=== PATIENT | male | born 1965 | race American Indian/Alaskan Native ===

== ENCOUNTER 2024-03-30 09:42 | Outpatient (AMB) | payer OTHER, SELFPAY ==
--- NOTE | 2024-03-30 10:08 | A.OFFPC_ITS ---
Vital Signs 03/30/24 10:11 Height 5 ft 2.8 in Weight 189 lb 8 oz BMI 33.8 BP 132/88 Blood Pressure Location Lt brachial Respiration 16 Pulse 79 Pulse Source Pulse Oximeter Temp 98.2 F Temp Source Oral Pulse Oximetry (%) 95 Oxygen Delivery Method Room Air Intake Visit Reasons: tania from [facility] Intake Note: New patient visit. Would like new script for Viagra 100 mg Allergies No Known Allergies Allergy (Verified 03/30/24 10:09) Medication List - Last Reconciled 03/30/24 by Emily Robles PA-C atorvastatin 10 mg PO DAILY ciclopirox 8% topical hydrochlorothiazide 25 mg PO DAILY sildenafil mg PO Tobacco use date assessed: 03/30/24 Dental Screening Dental Screen Date: 03/30/24 Did you have a dental visit in the last 12 months?: Yes Did you have a dental problem in the last 6 months where you did not have access to dental care?: No Was dental information given to patient?: Patient has dentist HPI tania from [facility] HPI Details Patient is a 58-year-old male who [facility]. He is transferring from [facility]. He was last seen by myself on 08/18/2023. He has a significant past medical history of hypertension, hyperlipidemia, ifg, ckd and erectile dysfunction. CV: Blood pressure today is 132/88. He is on hydrochlorothiazide 25 mg. States that he is compliant with this. He is on Lipitor 10 mg for his cholesterol. Overdue for labs. He never heard about a stress test for the chest discomfort. He gets it once a month and usually triggered by stress. Lasts for about 10 minutes and he will get a little dizzy with it. He states sometimes if he does do a lot of activity he gets dizzy. No sob. Musculoskeletal: following with [facility] for the right knee. He just got dx with sleep apnea and just started on CPAP. He never heard about a stress test for the chest discomfort. He gets it once a month and usually triggered by stress. Lasts for about 10 minutes and he will get a little dizzy with it. He states sometimes if he does do a lot of activity he gets dizzy. No sob. Colonoscopy: 05/05/2018- thinks overdue. Has a fam hx of colon ca, sister (age 55) and first cousin. other siblings with precancerous changes. Psa: wnl 08/2023 [facility] Medical History (Updated 03/30/24 @ 13:06 by Emily Robles PA-C) Tubular adenoma of colon Obesity, Class I, BMI 30-34.9 HTN (hypertension) Hyperglycemia Erectile dysfunction CKD (chronic kidney disease) Family History (Updated 03/30/24 @ 10:20 by Alba Heard CMA) Mother Cancer of lung Pulmonary fibrosis Father Cancer of prostate Diabetes HTN (hypertension) Social History Housing: House Patient Tobacco Use Status: Former Tobacco user Cigarettes Per Day: 2 Years Smoked: 5 e-Cigarette/Vaping Use: Never Used Second Hand Smoke Exposure: No service: No Current occupational status: employed 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 1. Little interest or pleasure in doing things: not at all 2. Feeling down, depressed, or hopeless: not at all 3. Trouble falling or staying asleep, or sleeping too much: not at all 4. Feeling tired or having little energy: not at all 5. Poor appetite or overeating: not at all 6. Feeling bad about yourself - or that you are a failure or have let yourself or your family down: not at all 7. Trouble concentrating on things, such as reading the newspaper or watching television: not at all 8. Moving or speaking so slowly that other people could have noticed. Or the opposite - being so fidgety or restless that you have been moving around a lot more than usual: not at all 9. Thoughts that you would be better off or of hurting yourself in some way: not at all Total score: 0 Depression Screening Interpretation: Negative Depression Screening Done: Yes [id number] - PHQ-9 Billing: Yes Source: Developed by Drs. Babar Marcial, Temi Marlow, Edwin Herron and colleagues, with an educational judy from [employer]. Thrive Questionnaire Date Thrive assessed: 03/30/24 I am a: Patient What is your living situation today?: I have a steady place to live Within the past 12 months, did the food you bought not last and you didn't have the money to get more?: Never true Within the past 12 months, did you worry whether your food would run out before you got money to buy more?: Never true Do you have trouble paying for medicines?: No Do you have trouble getting transportation to medical appointments?: No Do you have trouble paying your heating and electricity bill?: No Do you have trouble taking care of your child, family member or friend?: No Do you have trouble with day-to-day activities such as bathing, preparing meals, shopping, managing finances, etc.?: No Are you currently unemployed and looking for a job?: No Are you interested in more education?: No Please select the resources that you would like help with: None Currently or been in a relationship where the following occur: No concerns reported THRIVE Score: 0 AUDIT C Alcohol Use Questionnaire (AUDIT-C) 1. How often do you have a drink containing alcohol?: 2-3 times a week 2. How many drinks containing alcohol do you have on a typical day when you are drinking?: 5 or 6 3. How often do you have six or more drinks on one occasion?: Never Total Score: 5 CARMINA-7 AMB Questionnaire CARMINA-7 Date CARMINA - 7 assessed: 03/30/24 Feeling nervous, anxious, or on edge: 0 = Not at all Not being able to stop or control worryin = Not at all Worrying too much about different things: 0 = Not at all Trouble relaxin = Not at all Being so restless that it is hard to sit still: 0 = Not at all Becoming easily annoyed or irritable: 0 = Not at all Feeling afraid as if something awful might happen: 0 = Not at all Total CARMINA-7 score (0-4 normal; 5-9 mild; 10-14 moderate; 15-21 severe): 0 Source: Developed by Drs. Babar Marcial, Temi Marlow, Edwin Herron and colleagues, with an educational judy from [employer]. CARMINA-7 Assessment Billing CARMINA-7 Assessment Tool: CARMINA-7 Assessment 39083 Physical exam (Primary Care) Vital Signs: Last Vital Signs Temp 98.2 F 03/30/24 10:11 Pulse 79 03/30/24 10:11 Resp 16 03/30/24 10:11 BP 132/88 03/30/24 10:11 Pulse Ox 95 03/30/24 10:11 Oxygen Delivery Method Room Air 03/30/24 10:11 BMI result Body Mass Index 33.8 Tobacco/Smoking Status: Tobacco use Status Tobacco use date assessed 03/30/24 03/30/24 10:21 Patient Tobacco Use Status Former Tobacco user 03/30/24 10:21 e-Cigarette/Vaping Use Never Used 03/30/24 10:21 PHQ-9: PHQ-9 Score PHQ-9: Total score 0 03/30/24 10:26 Depression Screening Interpretation: Negative Thrive Assessment: Date of Thrive Assessment Date Thrive assessed 03/30/24 03/30/24 10:21 Currently or been in a relationship where the following occur: No concerns reported Const Orientation/consciousness: patient oriented x3 HENMT Ears: hearing grossly normal bilaterally Neck Thyroid: Thyroid normal Lymphatic: no lymphadenopathy noted Resp Auscultation: clear to auscultation bilaterally Cardio Rate: regular rate Rhythm: regular rhythm Heart sounds: S1 normal heart sound present and S2 normal heart sound present GI Inspection: Yes normal to inspection Palpation (GI): Soft to palpation and Other GI palpation findings present (nontender, no cva tenderness) Auscultation: normoactive bowel sounds Rectal Exam - Male: Yes deferred Skin General skin exam: no rashes or lesions noted Neuro General: patient oriented x3, gait normal and no focal motor deficits Assessment and Plan Assessment & Plan (1) Hyperlipidemia: Code(s): E78.5 - Hyperlipidemia, unspecified Qualifiers: Hyperlipidemia type: mixed hyperlipidemia Qualified Code(s): E78.2 - Mixed hyperlipidemia Plan: Lipids and LFTs ordered. Continue Lipitor. (2) HTN (hypertension): Code(s): I10 - Essential (primary) hypertension Qualifiers: Hypertension type: primary hypertension Qualified Code(s): I10 - Essential (primary) hypertension Plan: Continue hydrochlorothiazide. (3) CKD (chronic kidney disease): Code(s): N18.9 - Chronic kidney disease, unspecified Qualifiers: Chronic kidney disease stage: unspecified stage Qualified Code(s): N1 8.9 - Chronic kidney disease, unspecified Plan: We will recheck. Had 1 episode of a decreased GFR and then it normalized. (4) Hyperglycemia: Code(s): R73.9 - Hyperglycemia, unspecified Plan: A1c ordered (5) Obesity, Class I, BMI 30-34.9: Code(s): E66.9 - Obesity, unspecified Plan: Advised patient to reduce carbohydrate and sugar intake. (6) Erectile dysfunction: Code(s): N52.9 - Male erectile dysfunction, unspecified Plan: Refill Viagra today (7) Chest discomfort: Code(s): R07.89 - Other chest pain Plan: Warning signs of chest pain that would require emergent medical treatment were discussed. Patient reports having a chest x-ray done at [facility] for this but not all of the records are here yet. EKG today in office is normal sinus rhythm. Stress test ordered. We will follow up with patient pending test results. Patient understands and agrees with the plan. (8) Family history of colon cancer: Code(s): Z80.0 - Family history of malignant neoplasm of digestive organs Plan: Referral to GI Orders: Orders Complete Blood Count Auto Diff Today E66.9 - Obesity, unspecified, E78.5 - Hyperlipidemia, unspecified, I10 - Essential (primary) hypertension, N18.9 - Chronic kidney disease, unspecified, N52.9 - Male erectile dysfunction, unspecified, R73.9 - Hyperglycemia, unspecified TSH reflex Free T4 Today E66.9 - Obesity, unspecified, E78.5 - Hyperlipidemia, unspecified, I10 - Essential (primary) hypertension, N18.9 - Chronic kidney disease, unspecified, N52.9 - Male erectile dysfunction, unspecified, R73.9 - Hyperglycemia, unspecified AMB EKG-In Office Today R07.89 - Other chest pain CA stress test Today R07.89 - Other chest pain Comprehensive [place]. Panel Fast Today E66.9 - Obesity, unspecified, E78.5 - Hyperlipidemia, unspecified, I10 - Essential (primary) hypertension, N18.9 - Chronic kidney disease, unspecified, N52.9 - Male erectile dysfunction, unspecified, R73.9 - Hyperglycemia, unspecified Lipid Panel Today E66.9 - Obesity, unspecified, E78.5 - Hyperlipidemia, unspecified, I10 - Essential (primary) hypertension, N18.9 - Chronic kidney disease, unspecified, N52.9 - Male erectile dysfunction, unspecified, R73.9 - Hyperglycemia, unspecified Referrals Gastroenterology Referral Z12.11 - Encounter for screening for malignant neoplasm of colon, Z80.0 - Family history of malignant neoplasm of digestive organs Medications: New atorvastatin 10 mg PO DAILY 90 tabs 3RF hydrochlorothiazide 25 mg PO DAILY 90 tabs 3RF sildenafil (Viagra) take pill 30-60 min prior to sexual activity 100 mg PO DAILY PRN 30 tabs 1RF sexual activity Coding Level of Care Code Est Pt Level 4 (58005) Complex EM visit Add On G2211 Diagnoses Mixed hyperlipidemia E78.2 Hyperlipidemia type: mixed hyperlipidemia Primary hypertension I10 Hypertension type: primary hypertension Chronic kidney disease, unspecified CKD stage N18.9 Chronic kidney disease stage: unspecified stage Hyperglycemia R73.9 Obesity, Class I, BMI 30-34.9 E66.9 Erectile dysfunction N52.9 Chest discomfort R07.89 Family history of colon cancer Z80.0 Additional Codes CARMINA-7 Assessment Billing - CARMINA-7 Assessment Tool: CARMINA-7 Assessment [id number] ([id number])
[2024-03-30 10:11] VITALS: BP 132/88; PULSE 79; RESP 16; TEMP 36.8; O2SAT 95; BMI 33.8
== END 2024-03-30 11:14 | disposition home or self-care (01) ==
PROVIDERS: PCP Internal Medicine; Visit Provider Physician Assistant
DX: E78.2 Mixed hyperlipidemia (principal); I12.9 Hypertensive chronic kidney disease with stage 1 through stage 4 chronic kidney disease, or unspecified chronic kidney disease; N18.9 Chronic kidney disease, unspecified; R07.89 Other chest pain; R73.9 Hyperglycemia, unspecified; E66.9 Obesity, unspecified; N52.9 Male erectile dysfunction, unspecified; Z80.0 Family history of malignant neoplasm of digestive organs
CPT/HCPCS: 93000; 99214

== ENCOUNTER 2024-03-30 11:17 | Outpatient (REF) | payer OTHER, SELFPAY ==
[2024-03-30 14:14] LABS: MANUAL DIFF FLAG NO
[2024-03-30 14:34] LABS: Basophils Percent Auto 0.5 % (0-2); Eosinophils Absolute Auto 0.1 X10*3/uL (0.0-0.4); Eosinophils Percent Auto 0.9 % (0-4); Hematocrit 43.2 % (42.0-52.0); Hemoglobin 14.7 g/dl (14.0-18.0); Imm Gran Abs Auto 0.02 X10*3/uL (0.00-0.03); Imm Gran Pct Auto 0.3 % (0.0-0.4); Lymphocytes Absolute Auto 2.8 X10*3/uL (1.2-4.9); Lymphocytes Percent Auto 37.4 % (20-40); Mean Corpuscular Volume 91.1 fL (80.0-98.0); Mean Platelet Volume 11.4 fL (9.4-12.4); Monocytes Absolute Auto 0.6 X10*3/uL (0.1-1.2); Monocytes Percent Auto 8.3 % (2-11); Neutrophils Absolute Auto 3.9 x10*3/uL (2.0-8.3); Neutrophils Percent Auto 52.6 % (45-73); Platelet Count 232 X10*3/uL (160-400); Red Blood Count 4.74 X10*6/uL (4.60-5.80); Red Cell Distribution Width 11.7 % (11.0-16.0); White Blood Count 7.4 X10*3/uL (4.8-10.8)
[2024-03-30 14:50] LABS: Alanine Aminotransferase 19 U/L (0-40); Albumin Level 4.6 g/dL (3.5-5.0); Alkaline Phosphatase 77 U/L (39-117); Anion Gap 13 (12-20); Aspartate Amino Transferase 19 U/L (5-37); Blood Urea Nitrogen 18 mg/dL (9-16); Calcium 9.7 mg/dL (8.4-10.2); Carbon Dioxide 28 mmol/L (22-29); Chloride 102 mmol/L (96-108); Cholesterol 169 mg/dL (<200); Estimated Glomerular Filt Rate 52; Glucose Fasting 97 mg/dL (60-99); HDL Cholesterol 60 mg/dL (>40); LDL Cholesterol Calculated 95 mg/dL (<100); Potassium 3.5 mmol/L (3.3-5.1); Sodium 139 mmol/L (135-145); Total Protein 7.6 g/dL (6.5-8.0); Triglycerides 73 mg/dL (<150)
[2024-03-30 15:09] LABS: TSH reflex Free T4 1.35 uIU/mL (0.32-4.0)
== END 2024-03-30 11:18 | disposition home or self-care (01) ==
LOC: HO.WFDLDS 11:17
PROVIDERS: Visit Provider Physician Assistant
DX: N18.9 Chronic kidney disease, unspecified (principal); N52.9 Male erectile dysfunction, unspecified; R73.9 Hyperglycemia, unspecified; E66.9 Obesity, unspecified; E78.5 Hyperlipidemia, unspecified; I10 Essential (primary) hypertension
CPT/HCPCS: 36415; 80053; 80061; 84443; 85025

== ENCOUNTER → 2024-04-24 07:30 | Outpatient (REF) | payer BC, SELFPAY ==
--- NOTE | 2024-04-24 07:33 | CA_ITS ---
Acquisition Time: 2024-04-24 07:57:26 Total Exercise Time: 00:06:30 Test Indications: CP Medications: ATORVASTATIN HCTZ SILDENAFIL Protocol: SIMON Max HR: 171 BPM 106% of Pred: 161 BPM Max BP: 180/070 mmHG Max Work Load: 7.6 METS Exercise stress test exercise 6 m,in 30 sec of Simon protocol achieving 104% MPHR, with mild SOB, 8/10 chest tightness, with isolated PACs, with normotensive response to exercise, without EKG changes. Chesdt tightness resolved with rest. Test reviewed with Dr. Nix. Cait stress echo and echocardiogram for further assessment Referred By: Emily Robles Overread By: Chasidy Branham
== END ==
LOC: HO.CARD 07:30
PROVIDERS: PCP Internal Medicine; Visit Provider Physician Assistant
DX: R07.89 Other chest pain (principal)
CPT/HCPCS: 93017

== ENCOUNTER → 2024-04-24 07:33 | Outpatient (BNV) | payer BC, SELFPAY | PROVIDERS: PCP Internal Medicine; Visit Provider Nurse Practitioner | DX: I49.1 Atrial premature depolarization (principal); R06.02 Shortness of breath | CPT/HCPCS: 93016; 93018 ==

== ENCOUNTER 2024-05-03 14:17 | Outpatient (AMB) | payer BC, SELFPAY ==
[2024-05-03 14:17] VITALS: BP 128/84; PULSE 77; O2SAT 97; BMI 33.2
--- NOTE | 2024-05-03 14:17 | HO.NEPHOV ---
Vital Signs 05/03/24 14:17 Height 5 ft 2.8 in Weight 186 lb BMI 33.2 BP 128/84 Blood Pressure Location Rt brachial Position Sitting Pulse 77 Pulse Source Pulse Oximeter Pulse Oximetry (%) 97 Oxygen Delivery Method Room Air Intake Visit Reasons: CKD/ Conf [place] Required: No Accompanied by: Self / Same As Patient Allergies No Known Allergies Allergy (Verified 05/03/24 14:21) Medication List - Last Reconciled 05/03/24 by Nitish Joshi MD atorvastatin 10 mg PO DAILY ciclopirox 8% topical hydrochlorothiazide 25 mg PO DAILY sildenafil (Viagra) 100 mg PO DAILY PRN HPI Comments Details: . Tripp is a pleasant 58 year-old man with a history of hypertension for quite some time. He has been on hydrochlorothiazide 25 mg a day. There has been a mild increase in serum creatinine. About a year ago so ago creatinine was 1.6. Recent creatinine was 1.4. There has been some fluctuation in the creatinine and he has been sent for further renal evaluation. He is undergoing cardiac evaluation including an echocardiogram due to abnormal stress test. He has no specific complaints at this time. No history of smoking or alcohol abuse. 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 There is no family history of any kidney disease. He has no specific complaints like headache nausea or vomiting. No shortness of breath. No edema. No urinary symptoms no hematuria. [facility] Medical History (Updated 03/30/24 @ 13:06 by Emily Robles PA-C) Tubular adenoma of colon Obesity, Class I, BMI 30-34.9 HTN (hypertension) Hyperglycemia Erectile dysfunction CKD (chronic kidney disease) Family History Mother Cancer of lung Pulmonary fibrosis Father Cancer of prostate Diabetes HTN (hypertension) Social History Housing: House Patient Tobacco Use Status: Former Tobacco user Cigarettes Per Day: 2 Years Smoked: 5 e-Cigarette/Vaping Use: Never Used Second Hand Smoke Exposure: No service: No Current occupational status: employed 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 Current occupational exposures/hazards: No Cognitive needs: No Hearing needs: No Vision needs: No Review of Systems Const Denies fever(s) and Denies weight loss Card Denies chest pain Resp Denies cough and Denies hemoptysis GI Denies abdominal pain, Denies diarrhea and Denies nausea Musc Denies back pain Neuro Denies focal weakness Physical Exam Vital Signs: Last Vital Signs Pulse 77 05/03/24 14:17 BP 128/84 05/03/24 14:17 Pulse Ox 97 05/03/24 14:17 Oxygen Delivery Method Room Air 05/03/24 14:17 BMI result Body Mass Index 33.2 Const General: comfortable; No acute distress Orientation/consciousness: patient oriented x3 Eyes General: appearance normal, both eyes and all related structures Visual Yates: normal visual yates by confrontation Neck Neck: Yes supple and Yes no JVD Resp Effort & Inspection: normal respiratory effort and respiratory effort not decreased Auscultation: rhonchi Cardio Palpation: no palpable S3 and no palpable S4 Heart sounds: no rubs GI Inspection: Yes normal to inspection Palpation (GI): Soft to palpation Percussion: Yes normal to percussion Auscultation: normal bowel sounds General: Yes no CVA tenderness Back/Spine/Pelvis Back: no CVA tenderness Skin General skin exam: no petechiae and no purpura Neuro General: patient oriented x3 and no focal motor deficits Extrem General: No clubbing and No edema Results Reviewed Nephrology Results: Hgb 14.7 g/dl (14.0-18.0) 03/30/24 WBC 7.4 X10*3/uL (4.8-10.8) 03/30/24 Plt Count 232 X10*3/uL (160-400) 03/30/24 Sodium 139 mmol/L (135-145) 03/30/24 Potassium 3.5 mmol/L (3.3-5.1) 03/30/24 Chloride 102 mmol/L (96-108) 03/30/24 Carbon Dioxide 28 mmol/L (22-29) 03/30/24 BUN 18 mg/dL (9-16) H 03/30/24 Creatinine 1.39 mg/dL (0.5-1.4) 03/30/24 Calcium 9.7 mg/dL (8.4-10.2) 03/30/24 Assessment & Plan Assessment & Plan (1) CKD (chronic kidney disease): Code(s): N18.9 - Chronic kidney disease, unspecified Category: Medical Qualifiers: Chronic kidney disease stage: unspecified stage Qualified Code(s): N18.9 - Chronic kidney disease, unspecified (2) HTN (hypertension): Code(s): I10 - Essential (primary) hypertension Category: Medical Qualifiers: Hypertension type: primary hypertension Qualified Code(s): I10 - Essential (primary) hypertension Brittani Almaguer is a 58-year-old man with a history of elevated serum creatinine setting of hypertension. He has been hydrochlorothiazide 25 mg a day. The serum creatinine has fluctuated and it has been between 1.4-1.6 mg/dL. No urine studies are available at this time. He has increased muscle mass and this may be his baseline. However use of hydrochlorothiazide could lead to hypoperfusion causing decrease in EGFR. I have initiated workup for elevated serum creatinine. Recommendation twenty-four urine collection for creatinine clearance. Renal ultrasonogram. Routine urinalysis along with urine protein creatinine ratio. Encouraged him to stand low-sodium diet Increase p.o. fluid intake. Further workup will be based on the outcome of the above investigations. I would consider switching HCTZ to a different agent based on the repeat renal function test. Keep you updated Orders: Orders Basic Metabolic Panel Today I10 - Essential (primary) hypertension, N18.9 - Chronic kidney disease, unspecified UA and rflx microscopic Today I10 - Essential (primary) hypertension, N18.9 - Chronic kidney disease, unspecified Creatinine Urine Today I10 - Essential (primary) hypertension, N18.9 - Chronic kidney disease, unspecified Creatinine Clearance Urine 24U Today I10 - Essential (primary) hypertension, N18.9 - Chronic kidney disease, unspecified Total Protein Urine Random Today I10 - Essential (primary) hypertension, N18.9 - Chronic kidney disease, unspecified Creatinine, 24 Hr Group Today I10 - Essential (primary) hypertension, N18.9 - Chronic kidney disease, unspecified US renal BI Today I10 - Essential (primary) hypertension, N18.9 - Chronic kidney disease, unspecified CK, Total+Isoenzymes, Serum Today I10 - Essential (primary) hypertension, N18.9 - Chronic kidney disease, unspecified Coding Level of Care Code New Pt Level 4 (26037) Diagnoses Chronic kidney disease, unspecified CKD stage N18.9 Chronic kidney disease stage: unspecified stage Primary hypertension I10 Hypertension type: primary hypertension
== END 2024-05-03 14:40 | disposition home or self-care (01) ==
LOC: HO.HKAE 14:17
PROVIDERS: PCP Internal Medicine; Visit Provider Internal Medicine Hypertension Specialist
DX: I12.9 Hypertensive chronic kidney disease with stage 1 through stage 4 chronic kidney disease, or unspecified chronic kidney disease (principal); N18.9 Chronic kidney disease, unspecified
CPT/HCPCS: 99204

== ENCOUNTER → 2024-05-03 14:17 | Outpatient (BNVA) | payer BC, SELFPAY | PROVIDERS: PCP Internal Medicine; Visit Provider Internal Medicine Hypertension Specialist ==

== ENCOUNTER 2024-05-22 12:46 | Outpatient (REF) | payer BC, SELFPAY ==
[2024-05-22 13:54] LABS: Anion Gap 12 (12-20); Blood Urea Nitrogen 17 mg/dL (9-16); Calcium 9.7 mg/dL (8.4-10.2); Carbon Dioxide 27 mmol/L (22-29); Chloride 103 mmol/L (96-108); Estimated Glomerular Filt Rate 53; Glucose Random 117 mg/dL (60-115); Potassium 3.3 mmol/L (3.3-5.1); Sodium 139 mmol/L (135-145)
[2024-05-22 14:25] LABS: Appearance Urine Clear; Color Urine Yellow; Glucose Urine UA Negative (Negative); Leukocyte Esterase Urine Negative (Negative); Nitrite Urine Negative (Negative); Urine Blood Negative (Negative); Urine Ketones Negative (Negative); Urine Protein Negative (Neg-Trace)
[2024-05-22 14:46] LABS: Creatinine Urine 125.28 mg/dL; Total Protein Urine Random < 7 mg/dL (<12)
[2024-05-22 20:55] LABS: Total Volume 24 Hour Urine 1975 mL
[2024-05-22 20:56] LABS: Creatinine (CrCl) 1.37 mg/dL (0.5-1.4)
[2024-05-22 21:05] LABS: Creatinine Clearance 90.9 mL/min (85-125); Creatinine, 24Hr Urine 1.8 G/Day (1.0-2.0); Creatinine, mg/dL 90.84
[2024-05-25 21:58] LABS: CK-BB None Detected (None Detected); CK-MB 0 % (<5); CK-MM 92 % (95-100); Creatine Kinase,Total,Serum 103 U/L (44-196)
== END 2024-05-22 12:47 | disposition home or self-care (01) ==
LOC: HO.WFDLDS 12:46
PROVIDERS: Visit Provider Internal Medicine Hypertension Specialist
DX: I12.9 Hypertensive chronic kidney disease with stage 1 through stage 4 chronic kidney disease, or unspecified chronic kidney disease (principal); N18.9 Chronic kidney disease, unspecified
CPT/HCPCS: 36415; 80048; 81003; 82552; 82570; 82575; 84156

== ENCOUNTER 2024-05-26 15:04 | Outpatient (REF) | payer BC, SELFPAY ==
--- NOTE | ~2024-05-26 | US_ITS ---
EXAMINATION: US RETROPERITONEAL LIMITED (RENAL ONLY) CLINICAL INFORMATION: Chronic kidney disease. COMPARISON: None available. TECHNIQUE: Grayscale and Doppler imaging of the kidneys was obtained. FINDINGS: RIGHT KIDNEY: 10.4 x 4.6 x 3.9 cm (SAG x AP x TRV). The kidney is normal in size, contour, and echogenicity. Renal cortical thickness is normal. Small echogenic focus within the midpole which is favored to represent a vascular calcification. No additional calculi or focal parenchymal lesions. No hydronephrosis. LEFT KIDNEY: 10 x 5.6 x 3.8 cm (SAG x AP x TRV). The kidney is normal in size, contour, and echogenicity. Renal cortical thickness is normal. No calculi or focal parenchymal lesions. No hydronephrosis. Partially visualized increased hepatic parenchymal echogenicity. US/US renal BI IMPRESSION: 1. No hydronephrosis or nephrolithiasis. 2. Partially visualized increased hepatic parenchymal echogenicity, which can be seen in the setting of fatty infiltration. Electronically signed by: Hermilo Valero MD 06/24/2024 10:31 AM [facility]
== END 2024-05-26 15:05 | disposition home or self-care (01) ==
LOC: HO.US 15:04
PROVIDERS: PCP Internal Medicine; Visit Provider Internal Medicine Hypertension Specialist
DX: I12.9 Hypertensive chronic kidney disease with stage 1 through stage 4 chronic kidney disease, or unspecified chronic kidney disease (principal); N18.9 Chronic kidney disease, unspecified
CPT/HCPCS: 76775

== ENCOUNTER 2024-06-21 15:55 | Outpatient (AMB) | payer BC, SELFPAY ==
[2024-06-21 16:09] VITALS: BP 124/72; PULSE 80; O2SAT 97; BMI 33.9
--- NOTE | 2024-06-21 16:09 | HO.NEPHOV ---
Vital Signs 06/21/24 16:09 Height 5 ft 2.8 in Weight 190 lb BMI 33.9 BP 124/72 Blood Pressure Location Lt brachial Position Sitting Pulse 80 Pulse Source Pulse Oximeter Pulse Oximetry (%) 97 Oxygen Delivery Method Room Air Intake Visit Reasons: CKD/ LVM Tin Assorter Required: No Accompanied by: Self / Same As Patient Allergies No Known Allergies Allergy (Verified 06/21/24 16:12) Medication List - Last Reconciled 06/21/24 by Nitish Joshi MD atorvastatin 10 mg PO DAILY ciclopirox 8% topical hydrochlorothiazide 25 mg PO DAILY sildenafil (Viagra) 100 mg PO DAILY PRN HPI Comments Details: Navya Almaguer is a pleasant 58 year-old man with a history of hypertension for quite some time. He has been on hydrochlorothiazide 25 mg a day. There has been a mild increase in serum creatinine. About a year ago so ago creatinine was 1.6. Recent creatinine was 1.4. There has been some fluctuation in the creatinine and he has been sent for further renal evaluation. He is undergoing cardiac evaluation including an echocardiogram due to abnormal stress test. He has no specific complaints at this time. No history of smoking or alcohol abuse. 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 There is no family history of any kidney disease. He has no specific complaints like headache nausea or vomiting. No shortness of breath. No edema. No urinary symptoms no hematuria. 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 Current occupational exposures/hazards: No Cognitive needs: No Hearing needs: No Vision needs: No Physical Exam Vital Signs: Last Vital Signs Pulse 80 06/21/24 16:09 BP 124/72 06/21/24 16:09 Pulse Ox 97 06/21/24 16:09 Oxygen Delivery Method Room Air 06/21/24 16:09 BMI result Body Mass Index 33.9 Const General: comfortable; No acute distress Orientation/consciousness: patient oriented x3 Eyes General: appearance normal, both eyes and all related structures Visual Yates: normal visual yates by confrontation Neck Neck: Yes supple and Yes no JVD Resp Effort & Inspection: normal respiratory effort and respiratory effort not decreased Auscultation: rhonchi Cardio Palpation: no palpable S3 and no palpable S4 Heart sounds: no rubs GI Inspection: Yes normal to inspection Palpation (GI): Soft to palpation Percussion: Yes normal to percussion Auscultation: normal bowel sounds General: Yes no CVA tenderness Back/Spine/Pelvis Back: no CVA tenderness Skin General skin exam: no petechiae and no purpura Neuro General: patient oriented x3 and no focal motor deficits Extrem General: No clubbing and No edema Results Reviewed Nephrology Results: Hgb 14.7 g/dl (14.0-18.0) 03/30/24 WBC 7.4 X10*3/uL (4.8-10.8) 03/30/24 Plt Count 232 X10*3/uL (160-400) 03/30/24 Sodium 139 mmol/L (135-145) 05/22/24 Potassium 3.3 mmol/L (3.3-5.1) 05/22/24 Chloride 103 mmol/L (96-108) 05/22/24 Carbon Dioxide 27 mmol/L (22-29) 05/22/24 BUN 17 mg/dL (9-16) H 05/22/24 Creatinine 1.37 mg/dL (0.5-1.4) 05/22/24 Calcium 9.7 mg/dL (8.4-10.2) 05/22/24 Urine Protein Negative mg/dL (Neg-Trace) 05/22/24 Urine Creatinine 125.28 mg/dL 05/22/24 Renal US 05/26/24 Assessment & Plan Assessment & Plan (1) CKD (chronic kidney disease): Code(s): N18.9 - Chronic kidney disease, unspecified Category: Medical Qualifiers: Chronic kidney disease stage: unspecified stage Qualified Code(s): N18.9 - Chronic kidney disease, unspecified (2) HTN (hypertension): Code(s): I10 - Essential (primary) hypertension Category: Medical Qualifiers: Hypertension type: primary hypertension Qualified Code(s): I10 - Essential (primary) hypertension Plan Tripp is a 58-year-old man with a history of elevated serum creatinine setting of hypertension. He has been hydrochlorothiazide 25 mg a day. The serum creatinine has fluctuated and it has been between 1.4-1.6 mg/dL. He has increased muscle mass and this may be his baseline. However use of hydrochlorothiazide could lead to hypoperfusion causing decrease in EGFR. Twenty-four urine collection showed a creatinine clearance of 90 mL/minute. No significant proteinuria. Renal ultrasonogram appears normal. If she will report is pending. Encouraged him to stand low-sodium diet Increase p.o. fluid intake. Given the marginally elevated serum creatinine I will discontinue hydrochlorothiazide and switch him to amlodipine 2.5 mg a day. Encouraged him to keep monitoring blood pressure at home. We can titrate amlodipine based on home blood pressure readings. Medications: New amlodipine 2.5 mg PO DAILY 90 tabs 0RF Discontinued hydrochlorothiazide Discontinued Reason: Doctor's Order 25 mg PO DAILY 90 tabs 3RF Coding Level of Care Code Est Pt Level 4 (37927) Diagnoses Chronic kidney disease, unspecified CKD stage N18.9 Chronic kidney disease stage: unspecified stage Primary hypertension I10 Hypertension type: primary hypertension
== END 2024-06-22 11:06 | disposition home or self-care (01) ==
PROVIDERS: PCP Internal Medicine; Visit Provider Internal Medicine Hypertension Specialist
DX: I12.9 Hypertensive chronic kidney disease with stage 1 through stage 4 chronic kidney disease, or unspecified chronic kidney disease (principal); N18.9 Chronic kidney disease, unspecified
CPT/HCPCS: 99214

== ENCOUNTER → 2024-06-29 09:54 | Outpatient (REF) | payer BC, SELFPAY ==
--- NOTE | 2024-06-29 10:09 | CA_ITS ---
Transthoracic Echocardiogram Patient (Last, First, Middle): Tripp Toussaint, Gender: Male Date of : 1965 Age: 58 Procedure Date: 06/29/2024 Procedure Type: Transthoracic Echocardiogram Location: OP Height: 160.02 cm Weight: 81.65 kg BSA: 1.85 m2 Heart Rate: bpm BP: 116 / 74 mmHg Cloth Sponger: STEVE Referring MD: Emily Robles PA-C Honey Grader And Blender: Wilfrido Nix MD Symptoms: R07.89 - Other chest pain Study Quality: Adequate ECG Rhythm: Sinus Conclusions: - 1. Normal LV ejection fraction of 60 65% with grade 1 diastolic dysfunction 2. Mild mitral annular calcification and calcific changes in his ascending aorta with normal cardiac valvular Doppler 3. No gross pericardial effusion Findings Left Ventricle Normal left ventricular size, thickness, and systolic function. The visually estimated ejection fraction is between 60-65%. Spectral Doppler is indicative of an impaired relaxation filling pattern. E/E prime ratio is <8, consistent with normal filling pressures. Evidence suggests grade I (mild) diastolic dysfunction. Right Ventricle Normal right ventricular cavity size and systolic function. Atria Both atria are normal in size. There is no evidence of interatrial shunt. Aortic Valve The aortic valve structure and function is likely normal. There is no aortic valve stenosis. There is no aortic valve regurgitation. Mitral Valve Normal mitral valve structure and function. There is mild mitral annular calcification. There is trace mitral valve regurgitation. There is no mitral valve stenosis. Pulmonic Valve The pulmonic valve is likely normal. Tricuspid Valve Likely normal tricuspid valve structure and function. Tricuspid regurgitation envelope is inadequate for calculation of right ventricular systolic pressure. Normal right atrial pressure. There is no evidence of pulmonary hypertension. Great Vessels All visible segments of the aorta are normal in size. The pulmonary artery was not well visualized. Small plaque is seen in the sino tubular ridge. Venous The inferior vena cava is normal in size and collapses greater than 50% with inspiration. Pericardium/Pleural There is no evidence of pericardial effusion. Prior Study Comparison No prior study available for comparison. Measurements 2D Linear Measurements IVSd: 1.08 0.6-0.9/0.6-1.0 cm LVIDd: 4.24 3.9-5.3/4.2-5.9 cm LVIDd Index: 2.29 2.4-3.2/2.2-3.1 cm/m2 LVIDs: 2.21 2.0-3.6 cm LVPWd: 0.90 0.7-1.1 cm LA Diam: 2.70 2.7-3.8/3.0-4.0 cm LAIDs Index: 1.46 1.5-2.3 cm/m2 LV Mass: 170.99 67-162/88-224 g LV Mass Index: 92.43 43-95/49-115 g/m2 LVOT Diam: 2.00 3.0+(-)1.3 cm 2D Systolic Function EF 4C: 61.80 >55% EF 2C: 59.00 >55% EF BiP: 59.80 >55% Mitral Valve MV Pk E: 0.59 MV PK A: 0.63 MV Decel Time: 301.00 E/A: 0.90 E'Lateral: 11.60 E'Medial: 6.53 E/E' Med: 9.10 E/E' Lat: 5.10 PHT: 88.00 MVA PHT: 2.50 Decel Gregory: 1.97 Aortic Valve AoV Pk Jose Elias: 1.66 AoV Mn Jose Elias: 0.98 AoV VTI: 0.31 AoV Pk Grad: 11.00 Aov Mn Grad: 5.00 GABRIELLE Cont.VTI: 1.96 LVOT LVOT Pk Jose Elias: 0.93 LVOT Mn Jose Elias: 0.64 LVOT VTI: 0.19 LVOT Pk Grad: 3.00 LVOT Mn Grad: 2.00 LVOT Diam: 2.00 LVOT Area: 3.14 Diastolic Function MV Pk E: 0.59 MV Pk A: 0.63 E/A: 0.90 E'Medial: 6.53 E/E' Med: 9.10 E' Laterial: 11.60 E/E' Lat: 5.10 Right Ventricle TAPSE (mm): 20.70 TVS' Jose Elias: 14.00 Tricuspid Valve RA Press: 3.00 Great Vessels Aorta Sinus of Valsalva: 3.19 2.0-3.[address] Ridge: 2.35 1.7-3.4 cm Ao Asc: 2.70 2.1-3.4 cm Ao Arch: 2.60 Updated in Other Vendor System with Status of Final Wilfrido Nix MD electronically signed on 06/29/2024 5:40:16 PM with status of Final
== END ==
LOC: HO.CARD 09:54
PROVIDERS: PCP Internal Medicine; Visit Provider Physician Assistant
DX: R07.89 Other chest pain (principal); R94.39 Abnormal result of other cardiovascular function study
CPT/HCPCS: 93306

== ENCOUNTER → 2024-06-29 10:09 | Outpatient (BNV) | payer BC, SELFPAY | PROVIDERS: PCP Internal Medicine; Visit Provider Internal Medicine Cardiovascular Disease | DX: I34.81 Nonrheumatic mitral (valve) annulus calcification (principal) | CPT/HCPCS: 93306 ==

== ENCOUNTER 2024-08-03 08:32 | Outpatient (AMB) | payer BC, SELFPAY ==
--- NOTE | 2024-08-03 08:34 | MHC.OFFVIS ---
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 He states that he has had this problem for almost 5 years now. Seems rather exertional. When he is physically doing things, he may feel some chest tightness. However, it is not consistent and it does not happen all the time. He did not exercise stress test during which time he developed chest tightness. No known coronary disease or myocardial infarction or cardiomyopathy. He has got hypertension and dyslipidemia on medications. 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) Housing: House Alcohol intake: current Alcohol intake frequency: holidays/special occasions only Patient Tobacco Use Status: Never used Tobacco Cigarettes Per Day: 2 Years Smoked: 5 e-Cigarette/Vaping Use: Never Used Second Hand Smoke Exposure: No service: No Current occupational status: employed 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 Current occupational exposures/hazards: No Cognitive needs: No Hearing needs: No Vision needs: No Review of Systems Const Denies chills, Denies fatigue, Denies fever(s), Denies frequent falls, Denies weakness, Denies weight gain and Denies weight loss ENT Denies dizziness Card Denies chest pain, Denies leg edema, Denies lightheadedness, Denies palpitations, Denies dyspnea, Denies dyspnea on exertion and Denies orthopnea Resp Denies cough, Denies dyspnea and Denies dyspnea on exertion GI Denies bloating and Denies change in bowel habits Musc Denies muscle weakness, Denies numbness and Denies tingling Neuro Denies dizziness, Denies frequent falls, Denies numbness, Denies tingling and Denies weakness Endo Denies fatigue and Denies palpitations Physical Exam Vital Signs: Last Vital Signs Pulse 76 08/03/24 08:35 BP 120/80 08/03/24 08:35 BMI result Body Mass Index 35.6 Const General: comfortable and no acute distress Orientation/consciousness: patient oriented x3 HEENT Other: Unremarkable Head: Yes normal to inspection Neck Neck: Yes normal visual inspection Chest Chest palpation & inspection: normal inspection of the chest Resp Auscultation: clear to auscultation bilaterally Cardio Palpation: normal PMI Heart sounds: S1 normal heart sound present, S2 normal heart sound present, no gallops, no murmurs and no rubs GI Palpation (GI): Soft to palpation Back/Spine/Pelvis Other: unremarkable Skin General skin exam: no rashes or lesions noted Neuro General: patient oriented x3 Extrem General: Yes normal to inspection Psych Mental Status: mental status grossly normal Office Procedures EKG Details: EKG with underlying sinus rhythm at 76/Min; nonspecific ST-T changes; [place]. [address]-[id number], Complete Assessment & Plan Assessment & Plan (1) Chest discomfort: Code(s): R07.89 - Other chest pain Category: Medical (2) Abnormal stress test: Code(s): R94.39 - Abnormal result of other cardiovascular function study Category: Medical Plan Echocardiogram with preserved LVEF, 60-65%; mild mitral annular calcification and ascending aortic plaque. In the exercise stress test, he exercised for 6 minutes and 30 seconds on Simon protocol and reached 7.6 METS. Reached target heart rate. Developed 8/10 chest tightness. There is evidence of ST depression but not profound. However, more prominent in the recovery phase. Findings discussed with patient and significant other. Due to exertional chest tightness as well as above stress test findings, recommended diagnostic catheterization. This will be arranged in the near future. Start low-dose aspirin. Avoid strenuous physical activity. If any worsening symptoms from now till the catheterization is completed, to seek emergency help. Discussed with patient and significant other. Orders: Orders Basic Metabolic Panel Today R07.89 - Other chest pain Cardiac Cath LT Diagnostic Today R07.89 - Other chest pain Complete Blood Count no Diff Today R07.89 - Other chest pain Prothrombin Time INR Today R07.89 - Other chest pain Coding Level of Care Code New Pt Level 4 (29088) Diagnoses Chest discomfort R07. Abnormal stress test R94.39 CPT Codes EKG - CPT: 53244-[id number], Complete ([id number])
[2024-08-03 08:35] VITALS: BP 120/80; PULSE 76; BMI 35.6
--- OUTSIDE RECORDS SUMMARY | 2024-08-03 08:48 | XMS_ITS | Continuity of Care Document ---
Author Organization [facility] Address [address] [place] [id number]- Care Team Providers Care Solaris Administrator Name Role Phone Not on Staff, PCP Primary Care Physician Unavail able [place] [facility] [place]29/24 [facility] [address] [place] [id number]- Attending Physician: Addie Hernandez MD Admitting Physician: Addie Hernandez MD Referring Physician: Carrol Rodríguez Encounter Type: Pre-OutPatient One Time Allergies, Adverse Reactions, Alerts No Known Medication Allergies Immunizations Given and Recorded Vaccine Date Status Refusal Reason tetanus/diphtheria/pertussis, acel(Tdap) 01/28/18 Recorded Problem List Condition Confirmation Course Effective Dates Status H ealth Status Informant CKD (chronic kidney disease), stage III Confirmed Active Erectile dysfunction Confirmed Active Hyperglycemia Confirmed Active Hypertension Confirmed Active Obese class I Confirmed Active Obstructive sleep apnea Confirmed Active Tubular adenoma of colon Confirmed Active Social History Social History Type Response Smoking Status Never (less than 100 in lifetime); Use: pt denies entered on: 03/07/22 Sex Sex Representation Male (finding) Patient Care team information Care Team Personnel Name: Not on Staff, PCP Position: S Physician (General Medicine) Member Role: PCP Care Team Related Persons Name: AJ AMANDA Name: JOHNBELGICA LAZCANO Insurance Providers Guarantor name: JILLIAN BENNETT Health Plan Information #: 1 Payer: [employer] [facility] HMO POS Member Number: [id number] Policy Number: NA Group Number: NA Health Plan Information #: 2 [facility]: [facility] Member Number: [id number] Policy Number: NA Group Number: NA
--- OUTSIDE RECORDS SUMMARY | 2024-08-03 08:48 | XMS_ITS | Continuity of Care Document ---
Author Organization [facility] Address [address] [place] [id number]- Care Team Providers Care Health Care Administrator Name Role Phone Not on Staff, PCP Primary Care Physician Unavail able Encounter [facility] [place] Date(s): 06/29/24 - 07/29/24 [facility] [address] [address] Attending Physician: Yvette Gee Admitting Physician: Yvette Gee Referring Physician: AdmYvette soto Encounter Type: Triage Allergies, Adverse Reactions, Alerts No Known Medication [...] Role: PCP Care Team Related Persons Name: FRANKLINJOSE AMANDA Name: BELGICA LOPEZ Insurance Providers Guarantor name: JILLIAN DONALD Health Plan Information #: 1 Payer: [facility] HMO POS Member Number: NA Policy Number: NA Group Number: NA Health Plan Information #: 2 Payer: [facility] HLT PPO Member Number: NA Policy Number: NA Group Number: NA
== END 2024-08-03 09:18 | disposition home or self-care (01) ==
PROVIDERS: PCP Internal Medicine; Visit Provider Internal Medicine
DX: R07.89 Other chest pain (principal); R94.39 Abnormal result of other cardiovascular function study
CPT/HCPCS: 93010; 99204

== ENCOUNTER 2024-08-03 08:32 | Outpatient (REF) | payer BC, SELFPAY ==
[2024-08-03 09:36] LABS: Hematocrit 42.5 % (42.0-52.0); Hemoglobin 14.1 g/dl (14.0-18.0); Mean Corpuscular HGB Conc 33.2 g/dl (31.0-36.0); Mean Corpuscular Hemoglobin 30.1 pg (27.0-33.0); Mean Corpuscular Volume 90.6 fL (80.0-98.0); Mean Platelet Volume 10.6 fL (9.4-12.4); Platelet Count 276 X10*3/uL (160-400); Red Blood Count 4.69 X10*6/uL (4.60-5.80); Red Cell Distribution Width 12.1 % (11.0-16.0); White Blood Count 7.5 X10*3/uL (4.8-10.8)
[2024-08-03 09:42] LABS: Prothrombin Time 11.1 SEC (10.9-12.4)
[2024-08-03 10:01] LABS: Anion Gap 9 (12-20); Blood Urea Nitrogen 16 mg/dL (9-16); Calcium 9.4 mg/dL (8.4-10.2); Carbon Dioxide 28 mmol/L (22-29); Chloride 106 mmol/L (96-108); Estimated Glomerular Filt Rate > 60; Glucose Random 117 mg/dL (60-115); Potassium 4.3 mmol/L (3.3-5.1); Sodium 139 mmol/L (135-145)
== END 2024-08-03 08:33 | disposition home or self-care (01) ==
LOC: HO.LAB 08:32
PROVIDERS: PCP Internal Medicine; Visit Provider Internal Medicine
DX: R07.89 Other chest pain (principal); R94.39 Abnormal result of other cardiovascular function study
CPT/HCPCS: 36415; 80048; 85027; 85610; 93005

== ENCOUNTER → 2024-08-17 23:59 | Outpatient (BNV) | payer BC, SELFPAY | PROVIDERS: PCP Internal Medicine; Visit Provider Internal Medicine Cardiovascular Disease | DX: I20.89 Other forms of angina pectoris (principal); R93.1 Abnormal findings on diagnostic imaging of heart and coronary circulation | CPT/HCPCS: 93458; 99152 ==

== ENCOUNTER 2024-08-30 15:32 | Outpatient (AMB) | payer BC, SELFPAY ==
--- NOTE | 2024-08-30 15:32 | HO.NEPHOV ---
Vital Signs 08/30/24 15:33 Height 5 ft 2.8 in Weight 203 lb BMI 36.2 BP 128/80 Blood Pressure Location Rt brachial Position Sitting Pulse 90 Pulse Source Pulse Oximeter Pulse Oximetry (%) 97 Oxygen Delivery Method Room Air Intake Visit Reasons: 2 Month Follow Up CKD/ Conf Internet Sales Director Required: No Accompanied by: Self / Same As Patient Allergies No Known Allergies Allergy (Verified 08/30/24 15:34) Medication List - Last Reconciled 08/30/24 by Nitish Joshi MD amlodipine 2.5 mg PO DAILY atorvastatin 10 mg PO DAILY ciclopirox 8% topical sildenafil (Viagra) 100 mg PO DAILY PRN HPI Comments Details: Navya Almaguer is a pleasant 58 year-old man with a history of hypertension for quite some time. He has been on hydrochlorothiazide 25 mg a day. There has been a mild increase in serum creatinine. About a year ago so ago creatinine was 1.6. Recent creatinine was 1.4. There has been some fluctuation in the creatinine and he has been sent for further renal evaluation. He is undergoing cardiac evaluation including an echocardiogram due to abnormal stress test. He has no specific complaints at this time. No history of smoking or alcohol abuse. 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 There is no family history of any kidney disease. He has no specific complaints like headache nausea or vomiting. No shortness of breath. No edema. No urinary symptoms no hematuria. 08/30/24 After stopping HCTZ , cr is dowm from 1.35 to 1.1 Tolerating HCTZ No new issues [facility] Medical History (Updated 08/03/24 @ 08:55 by Esvin Paz MD) Tubular adenoma of colon Obesity, Class I, BMI 30-34.9 HTN (hypertension) Hyperglycemia Erectile dysfunction CKD (chronic kidney disease) Family History Mother Cancer of lung Pulmonary fibrosis Father Cancer of prostate Diabetes HTN (hypertension) Social History Housing: House Alcohol intake: current Alcohol intake frequency: holidays/special occasions only Patient Tobacco Use Status: Never used Tobacco Cigarettes Per Day: 2 Years Smoked: 5 e-Cigarette/Vaping Use: Never Used Second Hand Smoke Exposure: No service: No Current occupational status: employed 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 Lungs entry equal no rales. Heart S1-S2 heard no gallop or rub. Abdomen soft nontender. Neuro alert awake oriented. No asterixis. Extremities no edema. Results Reviewed Nephrology Results: Hgb 14.1 g/dl (14.0-18.0) 08/03/24 WBC 7.5 X10*3/uL (4.8-10.8) 08/03/24 Plt Count 276 X10*3/uL (160-400) 08/03/24 Sodium 139 mmol/L (135-145) 08/03/24 Potassium 4.3 mmol/L (3.3-5.1) 08/03/24 Chloride 106 mmol/L (96-108) 08/03/24 Carbon Dioxide 28 mmol/L (22-29) 08/03/24 BUN 16 mg/dL (9-16) 08/03/24 Creatinine 1.19 mg/dL (0.5-1.4) 08/03/24 Calcium 9.4 mg/dL (8.4-10.2) 08/03/24 Urine Protein Negative mg/dL (Neg-Trace) 05/22/24 Urine Creatinine 125.28 mg/dL 05/22/24 Renal US 05/26/24 Assessment & Plan Assessment & Plan (1) CKD (chronic kidney disease): Code(s): N18.9 - Chronic kidney disease, unspecified Category: Medical Qualifiers: Chronic kidney disease stage: unspecified stage Qualified Code(s): N18.9 - Chronic kidney disease, unspecified (2) HTN (hypertension): Code(s): I10 - Essential (primary) hypertension Category: Medical Qualifiers: Hypertension type: primary hypertension Qualified Code(s): I10 - Essential (primary) hypertension Plan Tripp is a 58-year-old man with a history of elevated serum creatinine setting of hypertension. He has been hydrochlorothiazide 25 mg a day. The serum creatinine has fluctuated and it has been between 1.4-1.6 mg/dL. He has increased muscle mass and this may be his baseline. However use of hydrochlorothiazide could lead to hypoperfusion causing decrease in EGFR. Twenty-four urine collection showed a creatinine clearance of 90 mL/minute. No significant proteinuria. Renal ultrasonogram appears normal. Encouraged him to stand low-sodium diet Increase p.o. fluid intake. BP is well controlled KEep Amlodipine No need for HCTZ Orders: Orders Basic Metabolic Panel 6 Months N18.9 - Chronic kidney disease, unspecified Coding Level of Care Code Est Pt Level 4 (30445) Diagnoses Chronic kidney disease, unspecified CKD stage N18.9 Chronic kidney disease stage: unspecified stage Primary hypertension I10 Hypertension type: primary hypertension
[2024-08-30 15:33] VITALS: BP 128/80; PULSE 90; O2SAT 97; BMI 36.2
--- OUTSIDE RECORDS SUMMARY | 2024-08-30 17:53 | XMS_ITS | Continuity of Care Document ---
Author Organization [facility] Address [address] [place] [id number]- Care Team Providers Care Glazing Machine Operator Name Role Phone Not on Staff, PCP Primary Care Physician Unavail able Encounter [facility] Date(s): 07/24/24 - 08/23/24 [facility] [address] [place] [id number] Encounter Type: Triage Allergies, Adverse Reactions, Alerts [...] Role: PCP Care Team Related Persons Name: NESSMARGARITA AMANDA Name: BELGICA LOPEZ Insurance Providers Guarantor name: JILLIAN DONALD Health Plan Information #: 1 Payer: [employer] Member Number: NA Policy Number: NA Group Number: NA
== END 2024-08-30 15:44 | disposition home or self-care (01) ==
PROVIDERS: PCP Internal Medicine; Visit Provider Internal Medicine Hypertension Specialist
DX: I12.9 Hypertensive chronic kidney disease with stage 1 through stage 4 chronic kidney disease, or unspecified chronic kidney disease (principal); N18.9 Chronic kidney disease, unspecified
CPT/HCPCS: 99214

== ENCOUNTER → 2024-08-30 15:32 | Outpatient (BNVA) | payer BC, SELFPAY | PROVIDERS: PCP Internal Medicine; Visit Provider Internal Medicine Hypertension Specialist ==

== ENCOUNTER 2024-09-01 08:34 | Outpatient (AMB) | payer BC, SELFPAY ==
--- NOTE | 2024-09-01 08:42 | A.OFFVIS_ITS ---
Intake Visit Reasons: Colonoscopy Screening Intake Note: NEW PATIENT Reason; Screening Prior hx of colo/egd? Y. Overdue. Concerns/Questions? NO significant GI concerns. Colonoscopy: 05/05/2018- thinks overdue. Has a fam hx of colon ca, sister (age 55) and first cousin. Other siblings with precancerous changes. Allergies No Known Allergies Allergy (Verified 09/01/24 09:07) HPI HPI Colonoscopy Screening: Details: 58 year old? male with past medical history of hyperlipidemia, hypertension, obesity, CKD is here today for pre colonoscopy screening.? Patient was sent to us by his PCP.? Last colonoscopy in April of [address] Kramer. Five tubular adenoma found. Patient had positive stress test few months ago and had cardiac catheterization 2 weeks ago that showed 30% stenosis. Patient had appointment with his clearance cutter today and no need to follow-up for 1 year. Patient denies any cardiac or respiratory symptoms at this time. Started on CPAP and is feeling much better. Patient is also starting low-dose aspirin.? Patient denies any gastrointestinal symptoms in the past or at present.? Family history of precancerous polyps. Denies history of difficulty with sedation or anesthesia in the past.? ? Denies any history of cardiac, renal, pulmonary, or hepatic disease.?? No history of infectious? diseases like hepatitis A, B, C, HIV or tuberculosis.? PFSH Medical History Tubular adenoma of colon Obesity, Class I, BMI 30-34.9 HTN (hypertension) Hyperglycemia Erectile dysfunction CKD (chronic kidney disease) Surgical History Hx of cardiac cath (~08/2024) Family History Mother Cancer of lung Pulmonary fibrosis Father Cancer of prostate Diabetes HTN (hypertension) Social History Housing: House Alcohol intake: current Alcohol intake frequency: holidays/special occasions only Patient Tobacco Use Status: Never used Tobacco Cigarettes Per Day: 2 Years Smoked: 5 e-Cigarette/Vaping Use: Never Used Second Hand Smoke Exposure: No service: No Current occupational status: employed 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 Current occupational exposures/hazards: No Cognitive needs: No Hearing needs: No Vision needs: No Review of Systems Const Denies weight gain and Denies weight loss ENT Reports no additional complaints, Denies dysphagia and Denies odynophagia Card Reports no additional complaints Resp Reports no additional complaints GI Denies abdominal pain, Denies belching, Denies melena, Denies bloating, Denies change in bowel habits, Denies dysphagia, Denies excessive flatus, Denies dyspepsia, Denies heartburn, Denies diarrhea, Denies loose stools, Denies nausea, Denies odynophagia and Denies vomiting Reports no additional complaints Musc Reports no additional complaints Neuro Reports no additional complaints Psych Reports no additional complaints Endo Reports no additional complaints Physical Exam Const General: healthy appearing, no acute distress and well developed Nutritional Appearance: well nourished Orientation/consciousness: patient oriented x3 Resp Effort & Inspection: normal respiratory effort, able to speak in complete se ntences, no tracheal deviation and symmetric chest movement Auscultation: clear to auscultation bilaterally Cardio Rate: regular rate GI Inspection: Yes normal to inspection and No distended Palpation (GI): Soft to palpation, not firm, nontender and No hepatosplenomegaly present Auscultation: normal bowel sounds General: Yes no CVA tenderness Back/Spine/Pelvis Back: no CVA tenderness Skin General skin exam: elasticity normal, turgor normal and dry skin Neuro General: patient oriented x3 Psych Appearance: grossly normal Mental Status: mental status grossly normal Assessment & Plan Assessment & Plan (1) Screen for colon cancer: Code(s): Z12.11 - Encounter for screening for malignant neoplasm of colon Plan Patient denies any GI, cardiac or respiratory symptoms.? Denies any issues with anesthesia in the past.? History of sleep apnea, using CPAP. Patient had positive stress test few months ago and couple weeks ago had cardiac catheterization that showed 30% stenosis. Appointment with Cardiology today. Patient denies any cardiac symptoms and next follow-up in 1 year. Patient will be started on low-dose aspirin. No history infectious diseases in the past or present.? Family history precancerous polyps.? Patient denies melena, hematochezia, unintentional weight loss or ribbon like stools.? Discussed at length the pre-procedure,? prep, diet & medications as well as what to expect prior, during and after the procedure.?? Stressed the importance of good bowel prep.? Recommended the use of Vaseline or Calmoseptine OTC & baby wipes with bowel movements to promote comfort.? ?Patient verbalizes understanding and agrees to plan of care.? He was given the opportunity to ask questions and all questions answered.? We will see him after the procedure.? Medications: New bisacodyl (Dulcolax (bisacodyl)) take 4 tabs at noon the day before your colonoscopy 20 mg (4 x 5 mg) PO ONCE 1 day 4 tabs 0RF Z12.11 - Encounter for screening for malignant neoplasm of colon polyethylene glycol 3350 (Miralax) As directed by gastroenterology department at [facility] 238 grams PO ONCE 238 grams 0RF Z12.11 - Encounter for screening for malignant neoplasm of colon Coding Level of Care Code New Pt Level 3 (60281) Diagnoses Screen for colon cancer Z12.11 Time Spent (min) 40 Comment 30 minutes spent with patient and additional 10 minutes spent reviewing his records
--- OUTSIDE RECORDS SUMMARY | 2024-09-01 08:53 | XMS_ITS | Continuity of Care Document ---
Author Organization [facility] ter Address [address] [place] [id number]- Care Team Providers Care Change Management Facilitator Name Role Phone Not on Staff, PCP Primary Care Physician Unavail able Encounter [facility] Date(s): 08/17/24 - 08/17/[address] [address] Discharge Disposition: A-D/C Home Attending Physician: Navid Avendaño MD Admitting Physician: Navid Avendaño MD Referring Physician: Esvin Paz MD Encounter Type: Disch Daystay Allergies, Adverse Reactions, Alerts No Known Medication [...] Active Tubular adenoma of colon Confirmed Active Vital Signs Most recent to oldest [Reference Range]: 1 2 3 Height 162.56 cm (08/17/24 8:46 AM) Weight 89.6 kg (08/17/24 8:46 AM) Oxygen Saturation [94-100 %] 94 % (08/17/24 2:00 PM) 94 % (08/17/24 1:00 PM) 93 % *L* (08/17/24 12:45 PM) Pulse Rate [55-90 bpm] 75 bpm (08/17/24 8:46 AM) Body Mass Index [18.5-24.99 kg/m2] 33.91 kg/m2 *>HHI* (08/17/24 8:46 AM) Blood Pressure [90-138/55-84 mm Hg] 122/86mm Hg (08/17/24 2:00 PM) 109/70mm Hg (08/17/24 1:00 PM) 107/73mm Hg (08/17/24 12:45 PM) Respiratory Rate [16-30 br/min] 15 br/min *L* (08/17/24 2:00 PM) 18 br/min (08/17/24 1:00 PM) 20 br/min (08/17/24 12:45 PM) Temperature [96.8-100.4 DegF] 97.4 DegF (08/17/24 8:46 AM) Mode of Delivery (Oxygen) Room air (08/17/24 2:00 PM) Room air (08/17/24 1:00 PM) Room air (08/17/24 12:45 PM) Blood pressure sites Arm, right (08/17/24 2:00 PM) Arm, right (08/17/24 1:00 PM) Arm, right (08/17/24 12:45 PM) Temperature Route Temporal (08/17/24 8:46 AM) Dry Weight 89.6 kg (08/17/24 8:46 AM) Weight Obtained Via Standing scale (08/17/24 8:46 AM) Dry Weight Obtained Via Standing scale (08/17/24 8:46 AM) Social History Social History Type Response Smoking Status Never (less than 100 in lifetime); Use: pt denies entered on: 03/07/22 Sex Sex Representation Male (finding) Note * Event Display: Hemodynamic Procedure Report Authored Date: * Harini Martin RN: PERFORM, SIGN, VERIFY Event Display: Cardiac Rehab Note Authored Date: Patient: JILLIAN BENNETT Age: 58 years Sex: Male : 1965 Associated Diagnoses: None Author: Harini Martin RN Recommendation and Plan Cardiac Rehab: Chart reviewed. Patient did not have an ND or PCI. Does not qualify for phase 2 program. Will sign off.. * Carline Alberto RN: PERFORM Event Display: Discharge/Transfer Note Hospital Authored Date: [id number] Nursing Discharge Note Entered On: 08/17/2024 15:33 EST Performed On: 08/17/2024 15:33 EST by Carline Alberto RN Nursing Discharge Note 2 Discharge Time : 08/17/2024 15:08 EST Discharge Level of Care at Discharge : Home/Fci/Foster Care Patient Left Unit Via : Wheelchair Patient Accompanied Off Unit with : Responsible adult DC Instructions Provided & Signed by Pt : Yes Patient Understands D/C Instructions : Yes Verbalized Understanding of D/C Plan By : Patient Patient Instructions Discharge Signed : Yes Did Pt have Specialty Bed or Wound Vac : No Carline Alberto RN - 08/17/2024 15:33 EST * Carline Alberto RN: PERFORM Event Display: Patient Education/Instruction Authored Date: [id number] Surgery Adult Discharge Instructions [address] [address] Name: JILLIAN BENNETT : 1965?? Visit: 08/17/2024 08:10?? Current Date: 08/17/2024 13:58 ?? Account: [id number]?? Surgery Discharge Instructions We would like to thank you for allowing us to assist you with your healthcare needs. The following includes patient education materials and information regarding your injury/illness. Our entire staffstrives to provide an excellent experience for our patients and their families. PLEASE ENSURE YOU FOLLOW-UP PER THE INSTRUCTIONS BELOW! ?? YOUR OPINION IS IMPORTANT TO US! Please complete the survey you may receive by mail or email. Your feedback will be used to make improvements to the healthcare experiences of our patients and their families. Surveys are administered by [employer] ?? If further treatment with your primary care physician or another doctor is recommended, it is important for you to keep the appointment. Call your primary care physician or return to the Emergency Department immediately if your condition worsens, fails to improve, or new symptoms develop. If you need to find a doctor, you can call [facility] for a referral at [phone] or toll free at [phone]) or log in to [email or web address].. ?? [facility], in keeping with [facility] guidance, no longer requires face masks for staff, patientsor visitors in most situations. Similiar to time spent indoors at other locations, there is the chance that you were exposed to repiratory viruses during your time with us (such as flu or COVID-19). If you develop symptoms concerning for a viral respiratory infection, please seek testing (and treatment if indicated) from your medical provider or home test kit. ?? You can view and manage your care through the patient portal or by using a health care susan of your choosing. [employer] is a website that allows you to securely view your medical information including your hospital discharge summary, office visit summaries, medications and follow-up visits. You can also request appointments, renew medications, and request access to your medical information using a health care susan of your choosing, or just ask a question. You are entitled to know the individuals who participated in your treatment. This information is available within your medical record and will be provided upon your request. You can enroll at [email or web address] or register d uring your next office visit. You have been discharged from [facility], Patient Care Unit: CARE??. If you have any questions regarding these instructions after you leave, please call us and we will be happy to assist you. [facility] Your Care Team Attending Physician Navid Avendaño MD?? Discharging Providers Lizzy Sue MD Reason for Admission CHEST PAIN [facility] HV2 ARR 830 AM Primary Care Provider Not on Staff, PCP?? Advance Directive Health Care Proxy on File No What to do next Instructions From Your Doctor ?? Orders?? discharge after TR band removal, if no post cardiac cath complications. ??Thank you!, ??08/17/24 11:02:00 EST?? Instructions from your Care Team Minimize activity of the hand on the side of the procedure for 24 hours Scheduled Follow-Up Appointments 2024 8:30 AM EST ?? With: Caitlin Henderson Where: [facility] [address] [address]- Status: Pending You Need to Schedule the Following Appointments Follow Up with??Esvin Paz Where: [address] [place] [address] [address] [facility] [place] [address]- Business (1) Follow Up with??PCP Not on Staff When:??In 0 days Discharge Medications JILLIAN BENNETT :1965 Visit Date:08/17/2024 Medications: Please continue your medications until treatment is completed or stopped by your provider. You may resume your daily prescription medications. Discuss any questions related to medications with your provider. What How Much When Why Instructions Next Dose Unchanged Amlodipine (amLODIPine 2.5 mg oral tablet) 1 tab(s) Oral Daily TAKE ONE TABLET BY MOUTH EVERY DAY ?? Unchanged Atorvastatin (atorvastatin 10 mg oral tablet) 1 tab(s) Oral Daily Unchanged Ciclopirox Topical (Ciclodan 8% topical solution) 1 susan Topically Daily Unchanged Durable Medical Equipment (CPAP Machine) AutoCPAP 10-18 Obstructive sleep apnea Obese class I Unchanged Hydrochlorothiazide (hydrochlorothiazide 25 mg oral tablet) 1 tab(s) Oral Daily Please call office to schedule an appointment for additional refills. ?? Unchanged Sildenafil (Viagra 50 mg oral tablet) 1 tab(s) Oral Daily 1 hour before sexual activity ?? Allergies (NKA means No Known Allergies) No Known Medication Allergies Education Materials Below is the list of Educational Leaflet Providered with your Discharge Instructions. [employer] Ignite Patient Education - Surgery Radial Cath Approach Discharge Instructions?? [employer] Ign[employer] Patient Education - Recovery After Procedural Sedation (Adult)?? [employer] Patient Education - Discharge Instructions for Cardiac Catheterization?? Valuables and Belongings I fully understand and agree that [facility] accepts no responsibility for all my personal property including clothing, toilet articles, radios, jewelry, dentures, hearing aids, rings, money, or any other property that is in my possession or is brought to me after admission. I understand certain valuables may be placed in a hospital safe for a short period of time. I understand that the hospital is not liable for loss or damage due to accident, fire, or other natural occurrence while said property is in the safe. I accept full responsibility for any personal property that I keep with me, and will not hold the hospital responsible in case of loss or disappearance. I acknowledge that i have been encouraged to send valuables and belongings home. ?? Review of Valuable and Belonging List: With patient Date for Pt to Sign Valuables/Belongings: 08/17/24 09:01:00 ?? Valuables & Belongings ?? Clothes Electronic devices Jewelry Monetary Items Personal devices Miscellaneous Medications (Valuables) Valuables at Bedside Jacket, Pants, Shirt, Shoes, Undergarments Cell phone ?? Wallet Glasses ? Valuables Sent Home ? Valuables Sent to Security ? Valuables Sent to Locker ? Other Discharge Information ? Pulmonary Rehab Status?? Pulmonary Rehab Discharge Status?? Respiratory Rate: 18 br/min ? Common Emergency Awareness Tips IS IT A STROKE? Act FAST and Check for these signs: FACE Does the face look uneven? ARM Does one arm drift down? SPEECH Does their speech sound strange? TIME Call at any sign of stroke ?? Heart Attack Signs Chest discomfort: Most heart attacks involve discomfort in the center of the chest and lasts more than a few minutes, or goes away and comes back. It can feel like uncomfortable pressure, squeezing, fullness or pain. Discomfort in upper body: Symptoms can include pain or discomfort in one or both arms, back, neck, jaw or stomach. Shortness of breath: With or without discomfort. Other signs: Breaking out in a cold sweat, nausea, or lightheaded. Remember, MINUTES DO MATTER. If you experience any of these heart attack warning signs, call to get immediate medical attention! ?? Smoking can increase your chances of developing chronic health problems and can cause harmful effects to other family members in your house. If you smoke, you are strongly encouraged to quit. Please call [employer] at [phone] or 1-310-502Local Reputation ([phone]) or log in to [email or web address] for referrals to smoking cessation programs. ?? The National Suicide Prevention Hotline is available 01/03 if you or someone you know needs to find a reason to keep living. By calling 8-743-503-MT DIGITAL MEDIA (4980) you'll be connected to a skilled, trained counselor at a crisis center in your area. SURGERY DISCHARGE INSTRUCTIONS SIGNATURE PAGE JILLIAN BENNETT Location:[facility] Registration Date and Time:08/17/2024 08:10 EST Primary Care Physician: Not on Staff, PCP Attending Physician: Jarocho GÓMEZ, [facility], I JILLIAN BENNETT, have received the above patient education materials/instructions and have verbalized understanding. If ambulance or transport services are being used I further acknowledge being given a choice of service. ?? If you need to contact me, please call me at this number: . Patient/Impact Hammer Operator Name:JILLIAN BENNETT Patient/Impact Hammer Operator Signature: Relationship to Patient: Witness Name/Signature: Date: * Carline Alberto RN: PERFORM, SIGN, VERIFY Event Display: Patient Education Handout Authored Date: [id number] * Carline Alberto RN: PERFORM Event Display: Patient Education Leaflets Authored Date: [id number] Surgery Radial Cath Approach Discharge Instructions ?? 278 Radial Cath Approach Discharge Instructions ?? Activity Take it easy the rest of the day. Limit your activity on the affected side.?? Act as if your arm is broken for 24 hours. No lifting with affected arm for 24 hours. No pushing or pulling with the affected arm. Do not reach or lift with the affected arm. Do not place excessive pressure on the wrist. ?? Precautions Due to intravenous sedation: It is recommended that someone stay with you for the first night after your procedure. Do not drive or operate hazardous machinery for 24 hours. Do not make legal decisions for 24 hours. Avoid alcohol for 24 hours. Unless directed otherwise, keep yourself hydrated. ?? Dressing/Incision Care You may remove the dressing 24 hours after your procedure. Replace with band aid for an additional 24 hours. You may shower and cleanse the site with soap & water then pat dry. Avoid submersion of site in water x 5 days. Cover the with a clean band aid daily until site is healed. If the band aid becomes soiled, replacewith a clean new one. Do not apply any ointments, lotions, gels or powders to the puncture site. ?? When to contact your doctor If any of the following signs of infection occur: Fever greater than 100 degrees F Increased pain Drainage, redness or warmth at puncture site Tingling of the fingers and hand that last longer than 3 days Slight bubble of blood or bleeding from site: apply manual pressure and notify your doctor ?? Emergency situations: Bleeding from the site that will not stop: apply manual pressure and notify your doctor Profuse bleeding streaming from the puncture site: Apply manual pressure and notify your doctor immediately If your hand becomes bluish, cold to the touch, or painful, notify your doctor immediately or go toEmergency Department. For these emergent situations: If unable to contact your physician, call 911. ?? * Carline Alberto RN: PERFORM Event Display: Patient Education Leaflets Authored Date: [id number] Recovery After Procedural Sedation (Adult) ?? [id number] Recovery After Procedural Sedation (Adult) You have been given medicine by vein to make you sleep during your procedure. This may have included both a pain medicine and sleeping medicine. You may have side effects, such as nausea, fatigue, orunsteadiness for up to 24 hours. You may also feel lightheaded. Home care Follow these guidelines when you get home: ??? For the next 8 or more hours, ask a trusted adult to watch over you. This person should make sure your condition is not getting worse, watch for problems, and keep you safe. ??? Don't drink any alcohol??for the next 24 hours. ??? Don't drive, operate dangerous machinery, or make important business or personal decisions??during the next 24 hours. ??? Take extra care when walking and moving, You may be at a higher risk of falling. ??? Follow any instructions you were given for eating and drinking. ??? Be sure to follow all after-care directions. Note: Your healthcare provider may tell you not to take any medicine by mouth for pain or sleep in the next 4 hours. These medicines may react with the medicines you were given in the hospital. This could cause a much stronger response than usual. ?? Follow-up care Follow up with your healthcare provider as advised. ?? When to seek medical advice Have someone call your healthcare provider or seek medical care right away if any of these occur: ??? Drowsiness gets worse ??? Weakness or dizziness gets worse ??? Repeated vomiting ??? Your speech is slurred, and others cannot understand you. ??? Severe or ongoing pain from the procedure that's not eased by the pain medicine (if prescribed) ??? Fever ??? New rash ?? Call 911 Have someone call 911 if you develop any of these symptoms: ??? Trouble breathing ??? Trouble swallowing ??? Chest pain ??? Loss of consciousness or you can't be awakened ?? Last Reviewed Date: 2023 ?? [id number] [employer] All rights reserved. This information is not intended as a substitute for professional medical care. Always follow your healthcare professional's instructions. ?? * Carline Alberto RN: PERFORM Event Display: Patient Education Leaflets Authored Date: [id number] Discharge Instructions for Cardiac Catheterization ?? 23717 Discharge Instructions for Cardiac Catheterization Cardiac catheterization??is an invasive??procedure??to look for certain heart problems. These problems may affect the heart's chambers, valves, and blood vessels. A thin, flexible tube (catheter) is put in a blood vessel in your groin or arm. The catheter is moved to the heart. The healthcare provider can look at the blood flow, blood pressure, and oxygen. They can inject contrast fluid??into your blood. This flows to your heart.??The provider can then take X-rays pictures?? of your heart. Coronary angiography is often done as part of a cardiac cath. This looks for blocked areas in the arteries that send blood to the heart. If a blockage is found, your provider may try to open up the artery. They may put a stent in place. Your provider will talk with you about the results of your procedure . Ask any questions you have before you leave. This sheet will help you take care of yourselfat home. Home care ??? Have a responsible adult drive you home after your procedure. ??? Don't drive or makeany important decisions for at least 24 hours after getting any type of sedation or anesthesia.? Drink?? 6 to 8??glasses of water over the next 24 hours. This is to help flush the contrast dye out of your body. Call your healthcare team if your urine has any change in color. ??? Take your tempe rature each day for 3 to 5 days. If you feel cold and clammy or start sweating, take your temperature right away. Call your healthcare team. ??? Do only light and easy activities for??the next?? 2 to3??days. Ask for help with chores and errands while you recover. Have someone drive you to your appointments. ??? Don't lift anything heavy??until your healthcare team says it's safe. ??? Ask your healthcare team when you can expect to return to work. Unless your job involves lifting, you may be able to return to your normal activities within 2 days. ??? Take your medicines as directed. Don't skip doses. ??? Check your incisions every day for signs of infection. These include redness, swelling,and fluid leaking. It's normal to have a small bruise or bump where the catheter was put in. A bruise that's getting larger is not normal. Tell your healthcare team about this. Call your healthcare team if you see blood forming in the incision. Go to the emergency room if you have uncontrolled bleeding from the artery site. This is even more important if you take medicines that make it hard for your blood to clot. These include aspirin, clopidogrel, warfarin, apixaban, and rivaroxaban. ??? Eat a healthy diet. Make sure it's low in fat, salt, and cholesterol. Ask your healthcare team for diet information. ??? Stop smoking. Sign up for a quit-smoking program. Or ask your healthcare team for help. ??? Exercise as your healthcare team tells you to. Your healthcare team??may advise you to start a cardiac rehab program. Cardiac rehab is an exercise program where trained healthcare staff watchyour progress and stress on your heart while you exercise. Ask your team how to enroll. ??? Don't swim or take baths until your healthcare team says it???s OK. You can shower the day after the procedure. Keep the site clean and dry. This keeps the incision from getting wet and infected until the skin and artery can heal. ??? Follow all other after-care instructions from your team.? Follow-up care ??? Make a follow-up appointment as advised. It's common to have a follow-up appointment 2 to 4 weeks after an angioplasty or coronary stent procedure. ??? Make a yearly appointment. This is??to make sure you're still doing well and not having any new symptoms. ??? Don't wait for a follow-up appointment if your medicines aren't working or you're having heart-related symptoms. Call your healthcare provider. ?? When to get medical care Call your healthcare provider right away if you have any of these: ??? Severe or increasing pain, numbness, coldness, or a bluish color in the leg or arm that held the catheter ??? Fever of 100.4?? F??( 38??C) or higher, or as advised by your healthcare provider ??? Signs of infection at the incision site. These include redness, swelling, drainage, or warmth. ??? Bleeding, bruising, or a lot of??swelling where the catheter was inserted ??? Blood in your urine ??? Black or tarry stools ??? Any unusual bleeding ??? Irregular, very slow, or fast heartbeat ??? Dizziness ?? Call 911 Call 911 if you have any of these: ??? Chest pain ??? Shortness of breath ??? Sudden numbness or weakness in arms, legs, or face, or trouble speaking ??? The puncture site swells up very fast ??? Bleeding from the puncture site that doesn't slow down with firm pressure ?? Last Reviewed Date: 2021 ?? [id number] [employer] All rights reserved. This information is not intended as a substitute for professional medical care. Always follow your healthcare professional's instructions. ?? History and physical note * Event Display: History and Physical Hospital Authored Date: EKG study * Event Display: ECG 12-Lead Authored Date: Please click on pdf link to open report * Event Display: ECG 12-Lead Authored Date: Ventricular Rate: 73 BPM Atrial Rate: 73 BPM P-R Interval: 148 ms QRS Duration: 68 ms Q-T Interval: 358 ms QTC Calculation(Bazett): 394 ms P Montross: 39 degrees R Montross: 45 degrees T Montross: 32 degrees Normal sinus rhythm Normal ECG When compared with ECG of 18-Aug-2023 16:16, No significant change was found Confirmed by FERNANDO MCDONALD MD ([id number]) on 08/17/2024 11:42:09 AM [place]: FERNANDO MCDONALD MD Patient Care team information Care Team Personnel Name: Not on Staff, PCP Position: S Physician (General Medicine) Member Role: PCP Care Team Related Persons Name: AMANDA ROCHA Name: BELGICA LOPEZ Insurance Providers Guarantor name: JILLIAN CHURCHZ Health Plan Information #: 1 Payer: HMO BLUE IN NETWORK Member Number: [id number] Policy Number: NA Group Number: [id number] Health Plan Information #: 2 Payer: OUT OF STATE PLANS Member Number: [id number] Policy Number: NA Group Number: [id number]
== END 2024-09-01 13:37 | disposition home or self-care (01) ==
PROVIDERS: PCP Internal Medicine; Visit Provider Nurse Practitioner Family
DX: Z01.818 Encounter for other preprocedural examination (principal); Z12.11 Encounter for screening for malignant neoplasm of colon; Z86.0101 Personal history of adenomatous and serrated colon polyps
CPT/HCPCS: S0285

== ENCOUNTER 2024-10-04 08:16 | Outpatient (AMB) | payer BC, SELFPAY ==
--- NOTE | 2024-10-04 08:23 | A.OFFPC_ITS ---
Vital Signs 10/04/24 08:25 Height 5 ft 2 in Weight 201 lb 8 oz BMI 36.9 BP 116/64 Blood Pressure Location Rt brachial Position Sitting Respiration 12 Pulse 76 Pulse Source Pulse Oximeter Pulse Oximetry (%) 99 Oxygen Delivery Method Room Air Intake Visit Reasons: htn. chest pain Allergies No Known Allergies Allergy (Verified 09/01/24 09:07) Medication List - Last Reconciled 10/04/24 by Emily Robles PA-C amlodipine 2.5 mg PO DAILY aspirin 81 mg PO DAILY atorvastatin 10 mg PO DAILY ciclopirox 8% topical Tobacco use date assessed: 03/30/24 Dental Screening Dental Screen Date: 03/30/24 HPI htn. chest pain HPI Details Patient is a 58-year-old male who presents today to [facility]. He is transferring from [facility]. He was last seen by myself on 08/18/2023. He has a significant past medical history of hypertension, hyperlipidemia, ifg, , cad, ckd and erectile dysfunction. CV: Blood pressure today is 132/88. He is on norvasc 2/5 mg daily. d/cd on hctz due to possible renal hypoprofusion. He is on Lipitor 10 mg for his cholesterol. goal is ldl <70 with new diagnosis of cad. He did undergo an exercise stress test on 04/24/2024 and developed chest tightness with had mild EKG changes. Echocardiogram done 06/29/2024 showed EF 60-65%, grade 1 diastolic dysfunction, no regional wall motion abnormality reported. He then underwent cardiac catheterization on 08/17/2024 which shows mild nonobstructive coronary artery disease. His right radial catheterization site is well healed. All test results reviewed with him in detail. He tells me he has been wearing CPAP for the last 2 months and his symptom of chest tightness has resolved. Symptom was most likely pulmonary related and non cardiac. Informed him he does now have a diagnosis of coronary artery disease. Signs and symptoms of true angina reviewed. Will start him on aspirin 81 mg daily. Continue atorvastatin with ideal LDL goal less than 70. Labs done 03/30/2024 showed LDL 95. He believes the atorvastatin was started after that date. I gave him a lab slip today to have a fasting lipid profile completed. Discussed good diet, weight control, exercise as tolerated. Continue the use of CPAP. Musculoskeletal: following with [facility] for the right knee. He states the gel injection has been very effective. He just got dx with sleep apnea and just started on CPAP. He never heard about a stress test for the chest discomfort. He gets it once a month and usually triggered by stress. Lasts for about 10 minutes and he will get a little dizzy with it. He states sometimes if he does do a lot of activity he gets dizzy. No sob. Colonoscopy: Scheduled for 11/2024. Has a fam hx of colon ca, sister (age 55) and first cousin. other siblings with precancerous changes. Psa: wnl 08/2023 [facility] Medical History Tubular adenoma of colon Obesity, Class I, BMI 30-34.9 HTN (hypertension) Hyperglycemia Erectile dysfunction CKD (chronic kidney disease) Surgical History Hx of cardiac cath (~08/2024) Family History Mother Cancer of lung Pulmonary fibrosis Father Cancer of prostate Diabetes HTN (hypertension) Social History Housing: House Alcohol intake: current Alcohol intake frequency: holidays/special occasions only Patient Tobacco Use Status: Never used Tobacco Cigarettes Per Day: 2 Years Smoked: 5 e-Cigarette/Vaping Use: Never Used Second Hand Smoke Exposure: No service: No Current occupational status: employed 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 1. Little interest or pleasure in doing things: not at all 2. Feeling down, depressed, or hopeless: not at all 3. Trouble falling or staying asleep, or sleeping too much: not at all 4. Feeling tired or having little energy: not at all 5. Poor appetite or overeating: not at all 6. Feeling bad about yourself - or that you are a failure or have let yourself or your family down: not at all 7. Trouble concentrating on things, such as reading the newspaper or watching television: not at all 8. Moving or speaking so slowly that other people could have noticed. Or the opposite - being so fidgety or restless that you have been moving around a lot more than usual: not at all 9. Thoughts that you would be better off or of hurting yourself in some way: not at all Total score: 0 Depression Screening Interpretation: Negative Depression Screening Done: Yes 01299 - PHQ-9 Billing: Yes Source: Developed by Drs. Babar Marcial, Temi Marlow, Edwin Herron and colleagues, with an educational judy from [employer]. Thrive Questionnaire Date Thrive assessed: 03/30/24 I am a: Patient What is your living situation today?: I have a steady place to live Within the past 12 months, did the food you bought not last and you didn't have the money to get more?: I choose not to answer this question Within the past 12 months, did you worry whether your food would run out before you got money to buy more?: I choose not to answer this question Do you have trouble paying for medicines?: No Do you have trouble getting transportation to medical appointments?: No Do you have trouble paying your heating and electricity bill?: No Do you have trouble taking care of your child, family member or friend?: I choose not to answer this question Do you have trouble with day-to-day activities such as bathing, preparing meals, shopping, managing finances, etc.?: I choose not to answer this question Are you currently unemployed and looking for a job?: I choose not to answer this question Are you interested in more education?: I choose not to answer this question Please select the resources that you would like help with: None Currently or been in a relationship where the following occur: I choose not to answer THRIVE Score: 0 AUDIT C Alcohol Use Questionnaire (AUDIT-C) 1. How often do you have a drink containing alcohol?: 2-4 times a month 2. How many drinks containing alcohol do you have on a typical day when you are drinking?: 1 or 2 3. How often do you have six or more drinks on one occasion?: Never Total Score: 2 Score Reviewed/Action Taken: Yes CARMINA-7 AMB Questionnaire CARMINA-7 Date CARMINA - 7 assessed: 03/30/24 Feeling nervous, anxious, or on edge: 0 = Not at all Not being able to stop or control worryin = Not at all Worrying too much about different things: 0 = Not at all Trouble relaxin = Not at all Being so restless that it is hard to sit still: 0 = Not at all Becoming easily annoyed or irritable: 0 = Not at all Feeling afraid as if something awful might happen: 0 = Not at all Total CARMINA-7 score (0-4 normal; 5-9 mild; 10-14 moderate; 15-21 severe): 0 Source: Developed by Drs. Babar Marcial, Temi Marlow, Edwin Herron and colleagues, with an educational judy from [employer]. CARMINA-7 Assessment Billing CARMINA-7 Assessment Tool: CARMINA-7 Assessment 28973 Physical exam (Primary Care) Vital Signs: Last Vital Signs Pulse 76 10/04/24 08:25 Resp 12 10/04/24 08:25 BP 116/64 10/04/24 08:25 Pulse Ox 99 10/04/24 08:25 Oxygen Delivery Method Room Air 10/04/24 08:25 BMI result Body Mass Index 36.9 Tobacco/Smoking Status: Tobacco use Status Tobacco use date assessed 03/30/24 10/04/24 08:23 Patient Tobacco Use Status Never used Tobacco 10/04/24 08:23 e-Cigarette/Vaping Use Never Used 10/04/24 08:23 PHQ-9: PHQ-9 Score PHQ-9: Total score 0 10/04/24 08:23 Depression Screening Interpretation: Negative Thrive Assessment: Date of Thrive Assessment Date Thrive assessed 03/30/24 10/04/24 08:23 Currently or been in a relationship where the following occur: I choose not to answer Const Orientation/consciousness: patient oriented x3 HENMT Ears: hearing grossly normal bilaterally Neck Thyroid: Thyroid normal Lymphatic: no lymphadenopathy noted Resp Auscultation: clear to auscultation bilaterally Cardio Rate: regular rate Rhythm: regular rhythm Heart sounds: S1 normal heart sound present and S2 normal heart sound present GI Inspection: Yes normal to inspection Palpation (GI): Soft to palpation and Other GI palpation findings present (nontender, no cva tenderness) Auscultation: normoactive bowel sounds Rectal Exam - Male: Yes deferred Skin General skin exam: no rashes or lesions noted Neuro General: patient oriented x3, gait normal and no focal motor deficits Results Reviewed Results Reviewed: Laboratory Tests 03/30/24 08/03/24 11:19 09:18 WBC 7.5 RBC 4.69 Hgb 14.1 Hct 42.5 Plt Count 276 Sodium 139 Potassium 4.3 D Chloride 106 Carbon Dioxide 28 Anion Gap 9 L BUN 16 Creatinine 1.19 Estimated GFR > 60 Random Glucose 117 H Triglycerides 73 Cholesterol 169 LDL Cholesterol, Calc 95 HDL Cholesterol 60 TSH 1.35 Coding Level of Care Code Est Pt Level 4 (01500) Complex EM visit Add On G2211 Diagnoses Primary hypertension I10 Hypertension type: primary hypertension Mixed hyperlipidemia E78.2 Hyperlipidemia type: mixed hyperlipidemia Chronic kidney disease, unspecified CKD stage N18.9 Chronic kidney disease stage: unspecified stage Coronary atherosclerosis I25.10 Additional Codes PHQ-9 - 75014 - PHQ-9 Billing: Yes ([id number]) CARMINA-7 Assessment Billing - CARMINA-7 Assessment Tool: CARMINA-7 Assessment 54180 ([id number]) Assessment & Plan Assessment & Plan (1) HTN (hypertension): Code(s): I10 - Essential (primary) hypertension Category: Medical Qualifiers: Hypertension type: primary hypertension Qualified Code(s): I10 - Essential (primary) hypertension Plan: Blood pressure well-controlled today. Continue current regimen (2) Hyperlipidemia: Code(s): E78.5 - Hyperlipidemia, unspecified Category: Medical Qualifiers: Hyperlipidemia type: mixed hyperlipidemia Qualified Code(s): E78.2 - Mixed hyperlipidemia Plan: He will get lipids checked. Tolerating atorvastatin well. Continue current regimen (3) CKD (chronic kidney disease): Code(s): N18.9 - Chronic kidney disease, unspecified Category: Medical Qualifiers: Chronic kidney disease stage: unspecified stage Qualified Code(s): N18.9 - Chronic kidney disease, unspecified Plan: Following with Nephrology. Last renal function improved. We will stay off the the hydrochlorothiazide at this point. (4) Coronary atherosclerosis: Code(s): I25.10 - Atherosclerotic heart disease of [place] coronary artery without angina pectoris Category: Medical Plan: Being monitored by Cardiology annually. Currently on a statin and aspirin therapy. Orders: Orders Comprehensive [place]. Panel Fast Today E78.2 - Mixed hyperlipidemia, I10 - Essential (primary) hypertension Hemoglobin A1c Today E78.2 - Mixed hyperlipidemia, I10 - Essential (primary) hypertension, R73.01 - Impaired fasting glucose Lipid Panel Today E78.2 - Mixed hyperlipidemia, I10 - Essential (primary) hypertension Prostate Specific Antigen Scr Today E78.2 - Mixed hyperlipidemia, I10 - Essential (primary) hypertension, Z01.89 - Encounter for other specified special examinations Complete Blood Count Auto Diff Today E78.2 - Mixed hyperlipidemia, I10 - Essential (primary) hypertension
[2024-10-04 08:25] VITALS: BP 116/64; PULSE 76; RESP 12; O2SAT 99; BMI 36.9
--- OUTSIDE RECORDS SUMMARY | 2024-10-04 08:39 | XMS_ITS | Clinical Summary ---
Author Organization [facility] Address [address] [facility] [address] [place] [address] Phone Care Team Providers Care Curtain Supervisor Name Role Phone Emily Robles PA-C Primary Care Provider + Medications hydroCHLOROthia zide 25 MG tablet Take 25 mg by mouth 1 (one) time each day Active sildenafil (VIAGRA) 50 MG tablet Take 50 mg by mouth 1 (one) time each day if needed for erectile dysfunction Active Active Problems Problem Noted Date Diagnosed Date Essential hypertension 05/28/2022 Serum creatinine above reference range 2 Chronic kidney disease 05/28/2022 Immunizations Name Administration Dates Next Due Tdap 01/28/2018 Family History Medical History Relation Comments Cancer Father Prostate Diabetes Father possible Hypertension Father Cancer Mother Pulmonary Relation Status Comments Father Alive Mother Social History Tobacco Use Types Packs/Day Years Used Date Smoking Tobacco: Never Tobacco Cessation:Counseling Given: Not Answered Alcohol Use Standard Drinks/Week Comments Yes 0 (1 standard drink = 0.6 oz pure alcohol) Alcoholic Drinks/day: Occasional social drink Sex and Gender Information Value Date Recorded Sex Assigned at Not on file Legal Sex Male 4:56 PM EST Gender Identity Not on file Sexual Orientation Not on file Last Filed Vital Signs Vital Sign Reading Time Taken Comments Blood Pressure 120/82 07/24/2019 12:00 PM EST Pulse 76 07/24/2019 12:00 PM EST Temperature - - Respiratory Rate - - Oxygen Saturation 96% 07/24/2019 12:00 PM EST Inhaled Oxygen Concentration - - Weight 87.5 kg (193 lb) 07/24/2019 12:00 PM EST Height 162.6 cm (5' 4 ) 07/24/2019 12:00 PM EST Body Mass Index 33.13 07/24/2019 12:00 PM EST Plan of Treatment Health Maintenance Due Date Last Done Comments Pneumococcal Vaccine: Pediat rics (0 to 5 Years) and At-Risk Patients (6 to 64 Years) (1 of 2 - PCV) 1970 Hepatitis B Vaccine (1 of 3 - 19+ 3-dose series) 12/16 Colorectal Cancer Screening: Annual FOBT 2013 Colorectal Cancer Screening: Colonoscopy 2013 Colorectal Cancer Screening: Sigmoidoscopy 2013 Influenza Vaccine (#1) 2024 Care Teams Curtain Supervisor Relationship Specialty Start Date End Date Emily Robles PA-C PCP - General Physician Disc Pad Plate Filler 03/12/22
== END 2024-10-04 10:22 | disposition home or self-care (01) ==
PROVIDERS: PCP Internal Medicine; Visit Provider Physician Assistant
DX: I12.9 Hypertensive chronic kidney disease with stage 1 through stage 4 chronic kidney disease, or unspecified chronic kidney disease (principal); E78.2 Mixed hyperlipidemia; N18.9 Chronic kidney disease, unspecified; I25.10 Atherosclerotic heart disease of native coronary artery without angina pectoris

== ENCOUNTER → 2024-10-04 08:16 | Outpatient (BNVA) | payer BC, SELFPAY | PROVIDERS: PCP Internal Medicine; Visit Provider Physician Assistant | DX: I12.9 Hypertensive chronic kidney disease with stage 1 through stage 4 chronic kidney disease, or unspecified chronic kidney disease (principal); N18.9 Chronic kidney disease, unspecified; E78.2 Mixed hyperlipidemia; I25.10 Atherosclerotic heart disease of native coronary artery without angina pectoris; Z79.82 Long term (current) use of aspirin; Z79.899 Other long term (current) drug therapy | CPT/HCPCS: 96127 ==

== ENCOUNTER 2024-12-05 07:01 | Day surgery (SDC) | payer BC, SELFPAY ==
[2024-12-01 14:18] VITALS: BMI 36.8
--- NOTE | 2024-12-04 09:01 | P.CONAN_ITS ---
Documented by User: Kassandra Lyn NP 12/04/24 09:05 HPI - Anesthesia Eval Consult details Narrative: 58yo M for Colonoscopy [place] [facility] [place] pain - w/u 07/2024 with stress, echo, cath OK COUNT INCLUDES THE [facility] Active Problems Active Problems: All Active Problems S/P cardiac cath (Acute) Coronary atherosclerosis (Acute) Abnormal stress test (Acute) Family history of colon cancer (Acute) Chest discomfort (Acute) Hyperlipidemia (Acute) CKD (chronic kidney disease) (Acute) Erectile dysfunction (Acute) Hyperglycemia (Acute) Obesity, Class I, BMI 30-34.9 (Acute) HTN (hypertension) (Acute) Past Medical History Medical History (Updated 12/01/24 @ 14:21 by Ruth Padilla RN) Sleep apnea Tubular adenoma of colon Obesity, Class I, BMI 30-34.9 HTN (hypertension) Hyperglycemia Erectile dysfunction CKD (chronic kidney disease) Family History Family History Mother Cancer of lung Pulmonary fibrosis Father Cancer of prostate Diabetes HTN (hypertension) Surgical History Surgical History (Updated 09/01/24 @ 13:05 by Guerita Smith NP-C) Hx of cardiac cath (~08/2024) Social History Social History Housing: House Alcohol intake: current Alcohol intake frequency: a few times a week Patient Tobacco Use Status: Never used Tobacco Cigarettes Per Day: 2 Years Smoked: 5 e-Cigarette/Vaping Use: Never Used Second Hand Smoke Exposure: No Use of substances other than those prescribed or required for medical reasons: No Are you DNR?: No Advance Directives: No Advance Directives Information Provided: Yes service: No Current occupational status: employed 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 occupational exposures/hazards: No Cognitive needs: No Hearing needs: No Vision needs: No Meds Allergies Allergy/AdvReac Type Severity Reaction Status Date / Time No Known Allergies Allergy Verified 12/05/24 07:18 Home Medications ?Medication ?Instructions ?Recorded ?Confirmed ?Last Taken ?Type ciclopirox 8 % topical solution topical 03/30/24 10/04/24 Unknown History Exam Height,Weight and Vital Signs: Height 5 ft 2 in Weight 91.172 kg Pertinent Lab Results Pertinent Lab Results: Laboratory Tests 08/03/24 09:18 WBC 7.5 Hgb 14.1 Hct 42.5 Plt Count 276 Sodium 139 Potassium 4.3 D Chloride 106 Carbon Dioxide 28 BUN 16 Creatinine 1.19 Narrative Narrative: exercise stress test on 04/24/2024 and developed chest tightness with had mild EKG changes. Echocardiogram done 06/29/2024 showed EF 60-65%, grade 1 diastolic dysfunction, no regional wall motion abnormality reported. He then underwent 08/17/2024, left main normal, lad mild bridging of the mid LAD, distal 30% stenosis, ostial diagonal 40% stenosis, left circumflex 30-40% stenosis, RCA minimal irregularities. Assessment and Plan Assessment Anesthesia Assessment: Chart Reviewed Documented by User: Karlo Durán MD 12/05/24 07:50 COUNT INCLUDES THE [facility] Past Medical History Medical History (Updated 12/01/24 @ 14:21 by Ruth Padilla RN) Sleep apnea Tubular adenoma of colon Obesity, Class I, BMI 30-34.9 HTN (hypertension) Hyperglycemia Erectile dysfunction CKD (chronic kidney disease) Family History Family History Mother Cancer of lung Pulmonary fibrosis Father Cancer of prostate Diabetes HTN (hypertension) Family history of problems with anesthesia: No Surgical History Surgical History (Updated 09/01/24 @ 13:05 by Guerita Smith NP-C) Hx of cardiac cath (~08/2024) History of Problems with Anesthesia: No Social History Social History Housing: House Alcohol intake: current Alcohol intake frequency: a few times a week Patient Tobacco Use Status: Never used Tobacco Cigarettes Per Day: 2 Years Smoked: 5 e-Cigarette/Vaping Use: Never Used Second Hand Smoke Exposure: No Use of substances other than those prescribed or required for medical reasons: No Are you DNR?: No Advance Directives: No Advance Directives Information Provided: Yes service: No Current occupational status: employed 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 occupational exposures/hazards: No Cognitive needs: No Hearing needs: No Vision needs: No Meds Allergies Allergy/AdvReac Type Severity Reaction Status Date / Time No Known Allergies Allergy Verified 12/05/24 07:18 Home Medications ?Medication ?Instructions ?Recorded ?Confirmed ?Last Taken ?Type ciclopirox 8 % topical solution topical 03/30/24 10/04/24 Unknown History Exam Airway Mallampati Class: II TM Dist: <=3cm Neck ROM: Full Loose/Missing/Broken Teeth: No Heart: ok Lungs: ok Assessment and Plan Assessment Anesthesia Assessment: Anesthesia Plan Discussed Final Anesthetic Review Family History of Problems with Anesthesia: No History of Problems with Anesthesia: No NPO: Yes ASA Class: II and III Final Preanesthetic Review: No Changes in Pt Med Stat, Meds/Allgs Chart Reviewed, Consent Obtained/Reviewed and Anes Risks/Benef Reviewed Patient Risk: Intermediate Procedure Risk: Low Anesthetic Plan Anesthetic Plan: MAC: and Agree w/ Assess. and Plan Disposition: Standard PACU
[2024-12-05 07:21] VITALS: BMI 32.6
[2024-12-05 07:29] VITALS: BP 126/90; PULSE 74; RESP 18; TEMP 36.7; O2SAT 96
[2024-12-05] MEDS: Lactated Ringers 1,000 ML 100 ML IVCONT (07:40)
--- NOTE | 2024-12-05 08:38 | P.HPSUR_ITS ---
Pre-Procedural Eval Section A - 24 Hr Update-Section A only Date of Service: 12/05/24 Section B - Complete if H&P > 30 days Chief Complaint: Encounter for screening for malignant neoplasm of Relevant Family History (Specify if Yes): Yes Relevant Social History: None Present Medications: see Short Stay Collaborative assessment Medical History: Significant History (Sleep apnea Tubular adenoma of colon Ob esity, Class I, BMI 30-34.9 HTN (hypertension) Hyperglycemia Erectile dysfunction CKD (chronic kidney disease)) History of Previous Operations: Relevant previous surgery/procedure and date(s) (Hx of cardiac cath (~08/2024)) Allergies: Allergies Allergy/AdvReac Type Severity Reaction Status Date / Time No Known Allergies Allergy Verified 12/05/24 07:18 Review of Systems Sugical H&P ROS: Negative: Constitution, Cardiovascular, Respiratory, Neurologic al, Psychiatric, Hem-Onc, Allergic/Immunologic, Gastrointestinal, Genitourinary, Musculoskeletal, Integumentary, Endocrine and Eyes/Ears/Nose/Throat Exam Surgical H&P Exam: Normal: HEENT, Normal: Heart, Normal: Lungs, Normal: Extremities, Normal: Abdomen, Normal: Skin and Normal: Neurological Plan Diagnosis/Plan: Unchanged I have reviewed the history and physical and performed a pertinent physical examination on my patient. No changes have occurred unless specified. Time Spent With Patient Time: Total time managing care of this patient today ____ minutes.
--- NOTE | 2024-12-05 09:07 | HO.OPN-COLON ---
Colonoscopy Operative Note Operative Note Date of Service: 12/05/24 Narrative: Operative Information Procedure Description: Colonoscopy Indication: screening Anesthesia: MAC COLONOSCOPY Instrument: Olympus variable stiffness pediatric scope 190L Colonoscopy Monitoring: Vital signs and clinical assessment, continuous EKG monitoring, Pulse oximetry, Carbon Dioxide monitoring and blood pressure monitoring were done throughout the procedure. Colon withdrawal time was 16 minutes. Procedure: The patient was placed in the left lateral decubitis position and pre-procedure medications were administered. After a digital rectal examination of the ano-rectum, the video colonoscope was inserted into the rectum and advanced through the colon to the cecum/TI. The colonoscope was slowly withdrawn in a retrograde panoramic fashion and the colon mucosa was carefully examined including a retroflexed view of the rectum. Findings and interventions are described below. Procedure Difficulty: easy Findings: Terminal Ileum-normal Cecum:normal Ascending Colon: mild diverticulosis - x 2 sessile polyps 5-6 mm lifted with eleview and removed with cold snare Transverse Colon -normal Descending Colon:normal Sigmoid Colon: moderate diverticulosis Rectum: Retroflexion with small internal hemorrhoids seen, grade I, 3-4 mm sessile polyp removed with cold forceps Anorectum - normal Intervention: cold snare and eleview injection for EMR, cold forceps Colon preparation: [place] Bowel Preparation Scale Right colon; 2 Transverse colon: 3 Left colon; 3 (0 = Unprepared colon segment with mucosa not seen due to solid stool that cannot be cleared. 1 = Portion of mucosa of the colon segment seen, but other areas of the colon segment not well seen due to staining, residual stool and/or opaque liquid. 2 = Minor amount of residual staining, small fragments of stool and/or opaque liquid, but mucosa of colon segment seen well. 3 = Entire mucosa of colon segment seen well with no residual staining, small fragments of stool or opaque liquid) Impression and Post Procedure Diagnosis: diverticulosis colon polyps x 3 internal hemorrhoids Plan: High fiber diet leaflet Avoid straining at stool, epsom salts and sitz bath, anusol supps or cream Repeat Colonoscopy in 5 years due to polyps or earlier if clinically indicated Above findings were reviewed with the patient and relevant handouts were provided if indicated.
[2024-12-05 09:12] VITALS: BP 103/64; PULSE 71; RESP 18; TEMP 36.9
[2024-12-05 09:27] VITALS: BP 116/76; PULSE 67; RESP 20; TEMP 36.7; O2SAT 97
== END 2024-12-05 09:40 | disposition home or self-care (01) ==
PROVIDERS: PCP Internal Medicine; Visit Provider Internal Medicine Gastroenterology
PROC: 0DJD8ZZ Inspection of Lower Intestinal Tract, Via Natural or Artificial Opening Endoscopic (ICD-10-PCS; CPT 45378; principal; 2024-12-05 08:30)
DX: Z12.11 Encounter for screening for malignant neoplasm of colon (principal); Z86.0101 Personal history of adenomatous and serrated colon polyps; Z80.0 Family history of malignant neoplasm of digestive organs; D12.2 Benign neoplasm of ascending colon; K62.1 Rectal polyp; K57.30 Diverticulosis of large intestine without perforation or abscess without bleeding; K64.0 First degree hemorrhoids; I12.9 Hypertensive chronic kidney disease with stage 1 through stage 4 chronic kidney disease, or unspecified chronic kidney disease; N18.9 Chronic kidney disease, unspecified; R73.9 Hyperglycemia, unspecified; E78.5 Hyperlipidemia, unspecified; N52.9 Male erectile dysfunction, unspecified; G47.30 Sleep apnea, unspecified; E66.811 Obesity, class 1; Z79.82 Long term (current) use of aspirin; Z79.899 Other long term (current) drug therapy; Z99.89 Dependence on other enabling machines and devices
CPT/HCPCS: 45385; 45380; 45381; 88305; J2003; J2704

== ENCOUNTER → 2024-12-05 07:01 | Outpatient (BNV) | payer BC, SELFPAY | PROVIDERS: PCP Internal Medicine; Visit Provider Internal Medicine Gastroenterology | DX: Z12.11 Encounter for screening for malignant neoplasm of colon (principal); D12.2 Benign neoplasm of ascending colon; K62.1 Rectal polyp; K57.90 Diverticulosis of intestine, part unspecified, without perforation or abscess without bleeding; K64.0 First degree hemorrhoids | CPT/HCPCS: 45380; 45381; 45385 ==

== ENCOUNTER 2025-03-16 09:42 | Outpatient (REF) | payer BC, SELFPAY ==
--- OUTSIDE RECORDS SUMMARY | 2025-03-16 09:45 | XMS_ITS | Clinical Summary ---
Author Organization [facility] Address [address] [facility] [address] [place] [address] Phone Care Team Providers Care Reporting Coordinator Name Role Phone Emily Robles PA-C Primary [...] range 2 Chronic kidney disease 05/28/2022 Immunizations Immunization Administration Dates Next Due Tdap 01/28/2018 Family [...] Due Date Last Done Comments Pneumococcal Vaccine: 50+ Ye ars (1 of 2 - PCV) 12/17/1983 Colorectal Cancer Screening: Annual FOBT 2013 Colorectal Cancer Screening: Colonoscopy 2013 Colorectal Cancer Screening: Sigmoidoscopy 2013 Influenza Vaccine (#1) 2025 Hepatitis B Vaccine Aged Out No longe r eligible based on patient's age to complete this topic Care Teams Reporting Coordinator Relationship Specialty Start Date End Date Emily Robles PA-C PCP - General Physician Railroad Construction Director 03/12/22
[2025-03-16 11:33] LABS: MANUAL DIFF FLAG NO
[2025-03-16 11:42] LABS: Hematocrit 43.8 % (42.0-52.0); Hemoglobin 14.1 g/dl (14.0-18.0); Imm Gran Abs Auto 0.01 X10*3/uL (0.00-0.03); Imm Gran Pct Auto 0.1 % (0.0-0.4); Lymphocytes Absolute Auto 2.5 X10*3/uL (1.2-4.9); Mean Corpuscular HGB Conc 32.2 g/dl (31.0-36.0); Mean Corpuscular Hemoglobin 30.2 pg (27.0-33.0); Mean Corpuscular Volume 93.8 fL (80.0-98.0); NRBC Abs Auto 0.000 X10*3/uL (0.0-0.012); NRBC Pct Auto 0.0 /100WBC (0.0-0.2); Platelet Count 243 X10*3/uL (160-400); Red Blood Count 4.67 X10*6/uL (4.60-5.80); White Blood Count 7.1 X10*3/uL (4.8-10.8)
[2025-03-16 12:02] LABS: Alanine Aminotransferase 30 U/L (0-40); Albumin Level 4.8 g/dL (3.5-5.0); Alkaline Phosphatase 94 U/L (39-117); Anion Gap 12 (12-20); Aspartate Amino Transferase 32 U/L (5-37); Blood Urea Nitrogen 15 mg/dL (9-16); Calcium 9.0 mg/dL (8.4-10.2); Carbon Dioxide 26 mmol/L (22-29); Chloride 106 mmol/L (96-108); Cholesterol 154 mg/dL (<200); Estimated Glomerular Filt Rate > 60; HDL Cholesterol 44 mg/dL (>40); Potassium 4.1 mmol/L (3.3-5.1); Sodium 140 mmol/L (135-145); Total Protein 7.5 g/dL (6.5-8.0); Triglycerides 70 mg/dL (<150)
[2025-03-16 12:05] LABS: Hemoglobin A1C 136.4515 umol/L; Total Hemoglobin (HGBA1C) 3707.5075 umol/L
== END 2025-03-16 09:43 | disposition home or self-care (01) ==
LOC: HO.WFDLDS 09:42
PROVIDERS: Internal Medicine Hypertension Specialist; Visit Provider Physician Assistant
DX: Z01.89 Encounter for other specified special examinations (principal); I12.9 Hypertensive chronic kidney disease with stage 1 through stage 4 chronic kidney disease, or unspecified chronic kidney disease; N18.9 Chronic kidney disease, unspecified; E78.2 Mixed hyperlipidemia; R73.01 Impaired fasting glucose; Z12.5 Encounter for screening for malignant neoplasm of prostate
CPT/HCPCS: 36415; 80048; 80053; 80061; 83036; 84153; 85025

== ENCOUNTER 2025-07-17 15:33 | Outpatient (AMB) | payer BC, SELFPAY ==
[2025-07-17 15:51] VITALS: BP 116/66; PULSE 86; RESP 14; O2SAT 96; BMI 34.2
--- NOTE | 2025-07-17 15:51 | MHC.PC.OV ---
Vital Signs 07/17/25 15:51 Height 5 ft 4 in Weight 199 lb 8 oz BMI 34.2 BP 116/66 Blood Pressure Location Rt brachial Position Sitting Respiration 14 Pulse 86 Pulse Source Pulse Oximeter Pulse Oximetry (%) 96 Oxygen Delivery Method Room Air Intake Visit Reasons: cpe Intake Note: Physical. 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: No Allergies No Known Allergies Allergy (Verified 07/17/25 15:54) Tobacco use date assessed: 07/17/25 Dental Screening Dental Screen Date: 07/17/25 Did you have a dental visit in the last 12 months?: Yes Did you have a dental problem in the last 6 months where you did not have access to dental care?: No Was dental information given to patient?: Patient has dentist HPI HPI Comments History of Present Illness Details Patient is a 59-year-old male with a past medical history of CAD, hypertension, hyperlipidemia, prediabetes, CKD, ED and DAVID presenting for CPE CV: [place] [facility] [place]. He did undergo an exercise stress test on 04/24/2024 and developed chest tightness with had mild EKG changes. Echocardiogram done 06/29/2024 showed EF 60-65%, grade 1 diastolic dysfunction, no regional wall motion abnormality reported. He then underwent cardiac catheterization on 08/17/2024 which shows mild nonobstructive coronary artery disease. Musculoskeletal: followed previously with [facility] for the right knee. He states the gel injection has been very effective. DAVID: Sees sleep medicine once annually. On CPAP. Colonoscopy: Scheduled for 11/2024-Repeat 5 years. [facility] [place]: 03/2025 WNL Declines flu vaccination ROS CONSTITUTIONAL: Denies weight loss, fever and chills. HEENT: Denies changes in vision and hearing. RESPIRATORY: Denies SOB and cough. CV: Denies palpitations and CP GI: Denies abdominal pain, nausea, vomiting and diarrhea. : Denies dysuria and urinary frequency. MSK: Denies new myalgia and joint pain. SKIN: Denies rash and pruritus. NEUROLOGICAL: Denies headache PSYCHIATRIC: Denies recent changes in mood. PHYSICAL EXAM: GENERAL: Alert and oriented x 3. NAD EYES: EOMI. Anicteric. HENT: Moist mucous membranes. No scleral icterus. No cervical lymphadenopathy. LUNGS: Clear to auscultation bilaterally. CARDIOVASCULAR: Regular rate and rhythm. No murmur. No JVD. ABDOMEN: Soft, non-tender +bs EXTREMITIES: No edema. Non-tender. SKIN: No rashes or lesions. Warm. NEUROLOGIC: No focal neurological deficits. CN II-XII grossly intact PSYCHIATRIC: Cooperative. Appropriate mood and affect [facility] Medical History (Updated 07/19/25 @ 11:34 by Hillary Cardenas MD) Sleep apnea Tubular adenoma of colon Obesity, Class I, BMI 30-34.9 HTN (hypertension) Hyperglycemia Erectile dysfunction CKD (chronic kidney disease) Surgical History (Updated 09/01/24 @ 13:05 by Guerita Smith NP-C) Hx of cardiac cath (~08/2024) Family History Mother Cancer of lung Pulmonary fibrosis Father Cancer of prostate Diabetes HTN (hypertension) Social History Housing: House Alcohol intake: current Alcohol intake frequency: a few times a week Patient Tobacco Use Status: Former Tobacco user Cigarettes Per Day: 2 Years Smoked: 5 e-Cigarette/Vaping Use: Never Used Second Hand Smoke Exposure: No service: No Current occupational status: employed 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 Current occupational exposures/hazards: No Cognitive needs: No Hearing needs: No Vision needs: No Questionnaire Thrive Questionnaire Date Thrive assessed: 10/04/24 I am a: Patient What is your living situation today?: I have a steady place to live Within the past 12 months, did the food you bought not last and you didn't have the money to get more?: I choose not to answer this question Within the past 12 months, did you worry whether your food would run out before you got money to buy more?: I choose not to answer this question Do you have trouble paying for medicines?: No Do you have trouble getting transportation to medical appointments?: No Do you have trouble paying your heating and electricity bill?: No Do you have trouble taking care of your child, family member or friend?: I choose not to answer this question Do you have trouble with day-to-day activities such as bathing, preparing meals, shopping, managing finances, etc.?: I choose not to answer this question Are you currently unemployed and looking for a job?: I choose not to answer this question Are you interested in more education?: I choose not to answer this question Please select the resources that you would like help with: None Currently or been in a relationship where the following occur: I choose not to answer THRIVE Score: 0 CARMINA-7 AMB Questionnaire CARMINA-7 Date CARMINA - 7 assessed: 03/30/24 Source: Developed by Drs. Babar Marcial, Temi Marlow, Edwin Herron and colleagues, with an educational judy from [employer]. Physical exam (Primary Care) Vital Signs: Last Vital Signs Pulse 86 07/17/25 15:51 Resp 14 07/17/25 15:51 BP 116/66 07/17/25 15:51 Pulse Ox 96 07/17/25 15:51 Oxygen Delivery Method Room Air 07/17/25 15:51 BMI result Body Mass Index 34.2 Tobacco/Smoking Status: Tobacco use Status Tobacco use date assessed 07/17/25 07/17/25 15:58 Patient Tobacco Use Status Former Tobacco user 07/17/25 15:58 e-Cigarette/Vaping Use Never Used 07/17/25 15:51 Thrive Assessment: Date of Thrive Assessment Date Thrive assessed 10/04/24 07/17/25 15:51 Currently or been in a relationship where the following occur: I choose not to answer Coding Level of Care Code Est Pt Prev Care 40-64y([id number]) Diagnoses Physical exam Z00.00 Atherosclerosis of [place] coronary artery of transplanted heart, unspecified whether angina present I25.811 Coronary Disease-Associated Artery/Lesion type: [place] artery [place] vs. transplanted heart: transplanted heart Associated angina: unspecified whether angina present Primary hypertension I10 Hypertension type: primary hypertension Chronic kidney disease, unspecified CKD stage N18.9 Chronic kidney disease stage: unspecified stage Assessment & Plan Assessment & Plan (1) Physical exam: Code(s): Z00.00 - Encounter for general adult medical examination without abnormal findings (2) Coronary atherosclerosis: Code(s): I25.10 - Atherosclerotic heart disease of [place] coronary artery without angina pectoris Category: Medical Qualifiers: Coronary Disease-Associated Artery/Lesion type: [place] artery [place] vs. transplanted heart: transplanted heart Associated angina: unspecified whether angina present Qualified Code(s): I25.811 - Atherosclerosis of [place] coronary artery of transplanted heart without angina pectoris (3) HTN (hypertension): Code(s): I10 - Essential (primary) hypertension Category: Medical Qualifiers: Hypertension type: primary hypertension Qualified Code(s): I10 - Essential (primary) hypertension (4) CKD (chronic kidney disease): Code(s): N18.9 - Chronic kidney disease, unspecified Category: Medical Qualifiers: Chronic kidney disease stage: unspecified stage Qualified Code(s): N18.9 - Chronic kidney disease, unspecified Plan 59 year old male for CPE Interval history reviewed Preventive measures reviewed. Declines flu vaccination CAD, HTN-blood pressure well controlled. On statin Labs ordered. Orders: Orders Complete Blood Count Auto Diff 6 Months E66.9 - Obesity, unspecified, I10 - Essential (primary) hypertension, N18.9 - Chronic kidney disease, unspecified, R73.9 - Hyperglycemia, unspecified Prostate Specific Antigen 6 Months E66.9 - Obesity, unspecified, I10 - Essential (primary) hypertension, N18.9 - Chronic kidney disease, unspecified, R73.9 - Hyperglycemia, unspecified Comprehensive Met. Panel 6 Months E66.9 - Obesity, unspecified, I10 - Essential (primary) hypertension, N18.9 - Chronic kidney disease, unspecified, R73.9 - Hyperglycemia, unspecified Lipid Panel 6 Months E66.9 - Obesity, unspecified, I10 - Essential (primary) hypertension, N18.9 - Chronic kidney disease, unspecified, R73.9 - Hyperglycemia, unspecified Hemoglobin A1c 6 Months E66.9 - Obesity, unspecified, I10 - Essential (primary) hypertension, N18.9 - Chronic kidney disease, unspecified, R73.9 - Hyperglycemia, unspecified Testosterone, Free/Total 07/17/25 N52.9 - Male erectile dysfunction, unspecified Medications: Changed From ciclopirox 8% topical To ciclopirox 8% 1 appl topical DAILY 6.6 mL 3RF
== END 2025-07-17 16:21 | disposition home or self-care (01) ==
LOC: HO.HMCFM 15:34
PROVIDERS: PCP Internal Medicine; Visit Provider Internal Medicine
DX: Z00.00 Encounter for general adult medical examination without abnormal findings (principal); I25.811 Atherosclerosis of native coronary artery of transplanted heart without angina pectoris; I12.9 Hypertensive chronic kidney disease with stage 1 through stage 4 chronic kidney disease, or unspecified chronic kidney disease; N18.9 Chronic kidney disease, unspecified